=== PATIENT | female | born 1985 | race Caucasian/White ===

== ENCOUNTER → 2017-03-05 | Outpatient (CLI) | payer OTHER ==
[2017-03-05 10:24] LABS: BLOOD UREA NITROGEN 11 mg/dl (7-18); BUN/CREATININE RATIO 16.3 (10-20); CALCIUM 8.7 mg/dl (8.5-10.1); CARBON DIOXIDE 26 mmol/L (21-32); CHLORIDE 106 mmol/L (98-107); CREATININE 0.68 mg/dl (0.60-1.20); GLUCOSE 87 mg/dl (70-99); POTASSIUM 3.8 mmol/L (3.5-5.1); SODIUM 138 mmol/L (136-145)
[2017-03-05 10:27] LABS: CHOLESTEROL 153 mg/dl (0-200); CHOLESTEROL/HDL RATIO 3.3; HDL CHOLESTEROL 47 mg/dl; LDL CHOLESTEROL CALCULATED 87 mg/dl; TRIGLYCERIDES 94 mg/dl (0-150); VERY LOW DENSITY LIPOPROT CALC 19 mg/dl
== END | disposition home or self-care (01) ==
LOC: C.LAB1850 08:52
PROVIDERS: ATTEND Student in an Organized Health Care Education/Training Program
DX: Z83.49 Family history of other endocrine, nutritional and metabolic diseases (principal)

== ENCOUNTER → 2017-05-23 | Outpatient (CLI) | payer OTHER | END | disposition home or self-care (01) | LOC: C.PATHSPEC 13:19 | PROVIDERS: ATTEND Dermatology | DX: D22.5 Melanocytic nevi of trunk (principal) ==

== ENCOUNTER → 2017-07-16 | Outpatient (CLI) | payer OTHER | END | disposition home or self-care (01) | LOC: C.PATHSPEC 11:28 | PROVIDERS: ATTEND Plastic Surgery | DX: D22.9 Melanocytic nevi, unspecified (principal); L85.9 Epidermal thickening, unspecified; D22.39 Melanocytic nevi of other parts of face ==

== ENCOUNTER → 2017-08-07 | Outpatient (CLI) | payer OTHER | END | disposition home or self-care (01) | LOC: C.PAPS 12:00 | PROVIDERS: ATTEND Obstetrics & Gynecology | DX: Z12.4 Encounter for screening for malignant neoplasm of cervix (principal); Z11.51 Encounter for screening for human papillomavirus (HPV); Z79.890 Hormone replacement therapy; Z87.410 Personal history of cervical dysplasia ==

== ENCOUNTER → 2018-02-21 | Outpatient (CLI) | payer OTHER ==
[2018-02-21 12:30] LABS: BLOOD UREA NITROGEN 11 mg/dl (7-18); CALCIUM 8.5 mg/dl (8.5-10.1); CARBON DIOXIDE 26 mmol/L (21-32); CHOLESTEROL 153 mg/dl (0-200); CREATININE 0.64 mg/dl (0.60-1.20); GLUCOSE 83 mg/dl (70-99); LDL CHOLESTEROL CALCULATED 86 mg/dl; SODIUM 138 mmol/L (136-145)
== END | disposition home or self-care (01) ==
LOC: C.LAB1850 11:12
PROVIDERS: ATTEND Hospitalist
DX: Z00.00 Encounter for general adult medical examination without abnormal findings (principal); Z12.4 Encounter for screening for malignant neoplasm of cervix; Z00.8 Encounter for other general examination

== ENCOUNTER 2019-02-04 07:50 | Inpatient (IN) ==
[~2019-02-04 07:50] MED LIST: CEFAZOLIN 2000MG 2,000 MG/15 ML SYR IV SCH; CITRIC ACID/SODIUM CITRATE 15 ML UDC PO SCH
[2019-02-04] MEDS: LACTATED RINGER'S 1,000 ML IV PRN ×3 (09:05→15:07)
[2019-02-04] MEDS ORDERED: miSOPROStol 25 MCG TAB PV ONE (09:19)
[2019-02-04] MEDS ORDERED: OXYTOCIN 30 UNITS/500 ML BAG IV PRN (09:19)
[2019-02-04] MEDS ORDERED: miSOPROStol 25 MCG TAB ONE (09:20)
--- NOTE | 2019-02-04 09:28 | Obstetrical Progress Note ---
Date of Service Patient here for induction 40 weeks estimated weight 7-8 pounds. We attempted cervical Squires with sterile technique however the cervix is tightly closed and highly suspended multiple attempts were made and the patient eventually had a vagal response as a result I suggested an alternative of Cytotec she agrees the cervix is closed 50% firm posterior -2 palpate his vertex position heart rate is reactive at this time February 04, 2019 Results & Data Vital Signs (Past 12 Hours) Vital Signs Temp Pulse Resp BP 02/04/19 08:03 85 125/80 02/04/19 08:01 36.9 C 20
[2019-02-04 09:57] LABS: Hematocrit (blood only) 31.6 % (37-47); Hemoglobin 10.7 g/dL (12.0-16.0); Mean Platelet Volume 10.3 fL (7.4-10.4); Platelet Count 198 K/uL (130-400); RDW Coefficient of Variation 13.4 % (11.5-14.5); RDW Standard Deviation 43.3 fL (36.4-46.3); Red Blood Count 3.59 M/uL (4.2-5.4); White Blood Count 7.78 K/uL (4.8-10.8)
[2019-02-04 10:09] LABS: Mean Corpuscular Hgb Conc 33.9 g/dL (32-36)
--- NOTE | 2019-02-04 10:29 | History & Physical Report ---
Date of Service February 04, 2019 Assessment & Plan (1) Post term over 40 weeks: History of Present Illness Primary Care Provider: , 40 weeks 2 days confirmed via ultrasound on 06/23/18. Here for induction of vaginal delivery. no complications with this . Has been attending OB appointments regularly. Currently taking vitamins and omeprazole. Contractions: none. Fluid or Blood loss: none Movement: active Labs Blood type: A+ Antibody screen: negative H.7 Hct: 31.6% Wbc:7.78 Plt: 198 Rubella: immune VDRL/RPR: nonreactive Gonorrhea: negative Chlamydia: negative HIV: negative HBsAg: negative GBS: negative Glucose tolerance x2: negative x2 Allergies Allergy/AdvReac Type Severity Reaction Status Date / Time No Known Allergies Allergy Unverified 07/05/18 11:46 Home Medications Home Medications Medication Instructions Recorded Confirmed Type PNV cmb#95-ferrous fumarate-FA 1 tab PO DAILY 07/05/18 02/04/19 History [ Multivitamins] Patient History Medical History Term Surgical History H/O wisdom tooth extraction H/O LEEP Family History Other Cancer Diabetes Hypertension Kidney disease Lung disease Seizures Social History Preferred Language: Yemeni Communication Ability: Effective Beliefs That Will Affect Care: None marital status: Current Living Situation: Spouse current occupational status: employed Other Information That Helps Us Care for You: No Feels Safe at Home: Yes Safety Concerns: Feels Safe At This Time Smoking Status: Never smoker Hx Alcohol Use: No Hx Substance Use: No 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 No abnormal paps after LEEP. Review of Systems no fever and no chills no cough, no dyspnea and no wheezing + edema; no chest pain and no calf pain no nausea, no vomiting, no cramping, no constipation and no diarrhea/loose stools no dysuria and no difficulty urinating + back pain Physical Exam Constitutional: well developed and well nourished Respiratory: normal respiratory effort; no respiratory distress, no labored breathing and no cough Auscultation: no diminished lung sounds, no crackles, no rales, no rhonchi and no wheezes Cardiovascular: Rate/Rhythm: regular rate and regular rhythm Extremities: normal capillary refill and + pedal edema; no calf tenderness Gastrointestinal (Abdomen): Inspection/Auscultation: + abdomen distended and normal bowel sounds Percussion/Palpation: abdomen nontender and no guarding Genitourinary: Speculum/Bimanual Exam: + uterus enlarged OB Exam Abdomen: + fundal height Fundus: + firm and + relation to umbilicus (high above umbilicus); not tender Cervical Exam per OB: Dilation - 0 Effacement - 50% Station - -2 Results & Data Vital Signs (Past 12 Hours) Vital Signs Temp Pulse Resp BP 02/04/19 08:03 85 125/80 02/04/19 08:01 36.9 C 20 Monitoring External Monitor Heart Monitor: 6 minute deceleration during unsuccessful wasserman bulb placement. Mother felt lightheaded and dizzy, procedure was stopped and mother was rolled side to side and LR bolus was started. Lowest HR was 60, recovered back to 120's afterward. Current heart tracing: Moderate Variability Accelerations No Decels Tocodynamometer Contraction Frequency: not currently ellie. Given 25 mg of Cytotec to help soften and dilate cervix. Pitocin also running to augment contractions and dilation. Supervising Physician Co-Signing Physician Notes Resident Physician Supervision Note: I was present with [Name of resident] during the history and exam. I discussed the case with the resident and agree with the findings and plan as documented in the note. Any exceptions or clarifications are listed here: [None] Documented By: Tristan Saini MD, FACOG
[2019-02-04] MEDS ORDERED: ePHEDrine sulfate 50 MG/ML AMP ONE (13:27)
[2019-02-04] MEDS ORDERED: BUPIVACAINE 0.25% 30 ML VIAL ONE (13:27)
[2019-02-04] MEDS ORDERED: fentaNYL 2MCG/ML ROPIV 1.25MG/ML 100 ML BAG EPI ONE (13:28)
[2019-02-04] MEDS ORDERED: fentaNYL citrate 100 MCG/2 ML VIAL ONE (13:28)
--- NOTE | 2019-02-04 13:45 | Anesthesiology Consultation ---
Date of Service February 04, 2019 Assessment & Plan (1) Encounter for pre-operative examination: Chart Review Chart Review: Acceptable Risk for Labor Epidural History Height/Weight Height: 5 ft 6 in Weight: 84.368 kg Allergies Allergy/AdvReac Type Severity Reaction Status Date / Time No Known Allergies Allergy Unverified 07/05/18 11:46 Medications Home Medications Medication Instructions Recorded Confirmed Last Taken PNV cmb#95-ferrous fumarate-FA 1 tab PO DAILY 07/05/18 02/04/19 02/03/19 22:00 [ Multivitamins] Active Medications Generic Name Dose Route Start Last Admin Trade Name Freq PRN Reason Stop Dose Admin Lactated Ringer's 1,000 mls @ 125 mls/hr 02/04/19 09:19 02/04/19 10:35 Lr IV 02/06/19 09:18 0 mls/hr .Q8H PRN Infusion L&D Protocol Protocol Past Medical History Medical History Term Past Family History Family History Other Cancer Diabetes Hypertension Kidney disease Lung disease Seizures Past Surgical History Surgical History H/O wisdom tooth extraction H/O LEEP Social History Smoking Status: Never smoker Hx Alcohol Use: No Hx Substance Use: No Physical Exam Vital Signs Last Vital Signs Temp 36.8 C 02/04/19 12:31 Pulse 83 02/04/19 13:40 Resp 18 02/04/19 12:31 BP 123/70 02/04/19 13:36 Pulse Ox 96 02/04/19 13:40 Testing Laboratory Results 02/04/19 09:30
[2019-02-04] MEDS ORDERED: fentaNYL 2MCG/ML ROPIV 1.25MG/ML 100 ML BAG EPI PRN (14:23)
[2019-02-04] MEDS ORDERED: NALOXONE HCL 0.4 MG/1 ML VIAL/CARP IV PRN ×2 (14:23→16:33)
[2019-02-04] MEDS ORDERED: NALOXONE HCL 1 MG in SODIUM CHLORIDE 0.9% 1000ML 1,000 ML IV PRN ×2 (14:23→16:33)
[2019-02-04] MEDS ORDERED: ONDANSETRON INJ 2 MG/ML 2 ML VIAL IV PRN (14:23)
[2019-02-04] MEDS ORDERED: ePHEDrine sulfate 50 MG/ML AMP IV PRN ×2 (14:23→16:33)
--- NOTE | 2019-02-04 15:16 | Obstetrical Progress Note ---
Date of Service Patient responded to 125 mg patient responded to 1 dose of Cytotec with very strong contractions and requested epidural. At this stage she is now at 4 cm however heart rate tracing is been category 2 with repetitive decelerations some of these have been time delayed we have given oxygen tried multiple positions and fluid boluses it is 4 cm -2 station with meconium. Discussed with the patient we will keep trying alleviating maneuvers including position oxygen and hydration but if the baby does not respond we would be unfortunately first recommend section February 04, 2019 Results & Data Vital Signs (Past 12 Hours) Vital Signs Temp Pulse Resp BP Pulse Ox 02/04/19 15:10 82 100 02/04/19 15:06 84 135/76 02/04/19 15:05 84 100 02/04/19 15:00 86 100 02/04/19 14:59 104 H 89 L 02/04/19 14:57 84 129/68 02/04/19 14:55 87 100 02/04/19 14:52 84 136/61 02/04/19 14:50 90 100 02/04/19 14:46 83 126/67 02/04/19 14:45 84 100 02/04/19 14:42 92 H 156/72 H 02/04/19 14:40 79 100 02/04/19 14:36 81 99/54 L 02/04/19 14:35 90 100 02/04/19 14:34 81 114/67 02/04/19 14:32 75 117/59 L 02/04/19 14:30 92 H 112/63 100 02/04/19 14:28 87 110/58 L 02/04/19 14:26 87 114/62 02/04/19 14:25 91 H 100 02/04/19 14:24 87 121/73 02/04/19 14:22 82 120/68 02/04/19 14:20 88 129/69 98 02/04/19 14:18 86 118/74 02/04/19 14:16 77 131/79 02/04/19 14:15 76 100 02/04/19 14:12 81 93 02/04/19 14:10 80 99 02/04/19 14:05 91 H 99 02/04/19 14:00 81 97 02/04/19 13:55 89 95 02/04/19 13:50 86 100 02/04/19 13:45 83 100 02/04/19 13:40 83 96 02/04/19 13:36 78 123/70 02/04/19 13:35 81 99 02/04/19 12:31 36.8 C 80 18 142/86 H 02/04/19 10:45 74 129/88 02/04/19 08:03 85 125/80 02/04/19 08:01 36.9 C 20
--- NOTE | 2019-02-04 15:36 | Obstetrical Progress Note ---
Date of Service heart rate continues to be worrisome decelerations after contractions that are prolonged there is good variability but the patient is 4 cm and -2 station she is not immediately close to delivery repetitive D cells for over 45 minutes but have not responded to any resolution steps I have suggested and recommended the patient agrees see history and physical for more details February 04, 2019 Results & Data Vital Signs (Past 12 Hours) Vital Signs Temp Pulse Resp BP Pulse Ox 02/04/19 15:34 95 H 94 02/04/19 15:31 82 126/78 02/04/19 15:30 84 100 02/04/19 15:26 75 122/74 02/04/19 15:25 89 100 02/04/19 15:20 81 100 02/04/19 15:17 86 129/80 02/04/19 15:15 86 100 02/04/19 15:10 82 100 02/04/19 15:06 84 135/76 02/04/19 15:05 84 100 02/04/19 15:00 86 100 02/04/19 14:59 104 H 89 L 02/04/19 14:57 84 129/68 02/04/19 14:55 87 100 02/04/19 14:52 84 136/61 02/04/19 14:50 90 100 02/04/19 14:46 83 126/67 02/04/19 14:45 84 100 02/04/19 14:42 92 H 156/72 H 02/04/19 14:40 79 100 02/04/19 14:36 81 99/54 L 02/04/19 14:35 90 100 02/04/19 14:34 81 114/67 02/04/19 14:32 75 117/59 L 02/04/19 14:30 92 H 112/63 100 02/04/19 14:28 87 110/58 L 02/04/19 14:26 87 114/62 02/04/19 14:25 91 H 100 02/04/19 14:24 87 121/73 02/04/19 14:22 82 120/68 02/04/19 14:20 88 129/69 98 02/04/19 14:18 86 118/74 02/04/19 14:16 77 131/79 02/04/19 14:15 76 100 02/04/19 14:12 81 93 02/04/19 14:10 80 99 02/04/19 14:05 91 H 99 02/04/19 14:00 81 97 02/04/19 13:55 89 95 02/04/19 13:50 86 100 02/04/19 13:45 83 100 02/04/19 13:40 83 96 02/04/19 13:36 78 123/70 02/04/19 13:35 81 99 02/04/19 12:31 36.8 C 80 18 142/86 H 02/04/19 10:45 74 129/88 02/04/19 08:03 85 125/80 02/04/19 08:01 36.9 C 20
--- NOTE | 2019-02-04 15:39 | History & Physical Report ---
Date of Service February 04, 2019 Patient presented to labor and delivery for induction at 40 weeks gestation we attempted to place a cervical Squires however this was not possible as the patient had a prior procedure on her cervix and the cervix was stenotic 1 dose of Cytotec was given vaginally she became uncomfortable requested epidural and at that states she was then 3 cm she did progress to 4 cm however her heart rate was category 2 for over 45 minutes and was nonresponsive to corrective measures was recommended. Currently the heart rate is in the 140s to 150s however deep D cells are occurring to the 80s after contractions Assessment & Plan (1) intolerance to labor, delivered, current hospitalization: Have recommended section section. The patient was counseled to the nature of the procedure including alternatives such as continuing labor. Risks were discussed including bleeding infection injury to bowel bladder ureter vessels and even baby Deep vein thrombosis pulmonary embolus hernia and failure of the incision to heal were discussed Patient verbalized understanding of this and was given ample time to ask questions History of Present Illness Primary Care Provider: Nora Darling MD Allergies Allergy/AdvReac Type Severity Reaction Status Date / Time No Known Allergies Allergy Unverified 07/05/18 11:46 Home Medications Home Medications Medication Instructions Recorded Confirmed Type PNV cmb#95-ferrous fumarate-FA 1 tab PO DAILY 07/05/18 02/04/19 History [ Multivitamins] Patient History Medical History Term Surgical History H/O wisdom tooth extraction H/O LEEP Family History Other Cancer Diabetes Hypertension Kidney disease Lung disease Seizures Social History Preferred Language: Armenian Communication Ability: Effective Beliefs That Will Affect Care: None marital status: Current Living Situation: Spouse current occupational status: employed Other Information That Helps Us Care for You: No Feels Safe at Home: Yes Safety Concerns: Feels Safe At This Time Smoking Status: Never smoker Hx Alcohol Use: No Hx Substance Use: No Physical Exam Constitutional: WD/WN, vitals as above Respiratory: normal respiratory effort, lungs clear to auscultation Cardiovascular: RRR, no murmur, no edema Genitourinary: Manual OB Exam: + cervical dilation (4-5), + cervical effacement 100% and + station -2 OB Exam Monitor Tracing: + category II Results & Data Vital Signs (Past 12 Hours) Vital Signs Temp Pulse Resp BP Pulse Ox 02/04/19 15:35 87 100 02/04/19 15:34 95 H 94 02/04/19 15:31 82 126/78 02/04/19 15:30 84 100 02/04/19 15:26 75 122/74 02/04/19 15:25 89 100 02/04/19 15:20 81 100 02/04/19 15:17 86 129/80 02/04/19 15:15 86 100 02/04/19 15:10 82 100 02/04/19 15:06 84 135/76 02/04/19 15:05 84 100 02/04/19 15:00 86 100 02/04/19 14:59 104 H 89 L 02/04/19 14:57 84 129/68 02/04/19 14:55 87 100 02/04/19 14:52 84 136/61 02/04/19 14:50 90 100 02/04/19 14:46 83 126/67 02/04/19 14:45 84 100 02/04/19 14:42 92 H 156/72 H 02/04/19 14:40 79 100 02/04/19 14:36 81 99/54 L 02/04/19 14:35 90 100 02/04/19 14:34 81 114/67 02/04/19 14:32 75 117/59 L 02/04/19 14:30 92 H 112/63 100 02/04/19 14:28 87 110/58 L 02/04/19 14:26 87 114/62 02/04/19 14:25 91 H 100 02/04/19 14:24 87 121/73 02/04/19 14:22 82 120/68 02/04/19 14:20 88 129/69 98 02/04/19 14:18 86 118/74 02/04/19 14:16 77 131/79 02/04/19 14:15 76 100 02/04/19 14:12 81 93 02/04/19 14:10 80 99 02/04/19 14:05 91 H 99 02/04/19 14:00 81 97 02/04/19 13:55 89 95 02/04/19 13:50 86 100 02/04/19 13:45 83 100 02/04/19 13:40 83 96 02/04/19 13:36 78 123/70 02/04/19 13:35 81 99 02/04/19 12:31 36.8 C 80 18 142/86 H 02/04/19 10:45 74 129/88 02/04/19 08:03 85 125/80 02/04/19 08:01 36.9 C 20
[2019-02-04] MEDS ORDERED: MoRPHine SULFATE PF 1 MG/ML 10 ML AMP/VIAL ONE (15:41)
[2019-02-04] MEDS ORDERED: LACTATED RINGER'S 1,000 ML IV SCH ×2 (15:45→19:37)
[2019-02-04] MEDS ORDERED: LIDOCAINE HCL 2% MPF (LOCAL) 5 ML VIAL INFIL ONE (16:22)
[2019-02-04] MEDS ORDERED: SUCCINYLCHOLINE CHLORIDE 20 MG/ML 10 ML VIAL ONE (16:22)
[2019-02-04] MEDS ORDERED: METOCLOPRAMIDE HCL INJ 5 MG/ML 2 ML VIAL ONE (16:22)
[2019-02-04] MEDS ORDERED: ONDANSETRON INJ 2 MG/ML 2 ML VIAL ONE (16:22)
[2019-02-04] MEDS ORDERED: OXYTOCIN 10 UNITS/ML VIAL ONE (16:22)
[2019-02-04] MEDS ORDERED: PROPOFOL IV EMULSION 10 MG/ML 20 ML VIAL IV ONE (16:22)
[2019-02-04] MEDS ORDERED: NALOXONE HCL 0.08 MG in SYRINGE 1.8 ML IV PRN (16:33)
[2019-02-04] MEDS ORDERED: MEPERIDINE HCL 25 MG/ML CARP IV PRN (16:33)
[2019-02-04] MEDS ORDERED: NALBUPHINE HCL INJ 10 MG/ML AMP IV PRN (16:33)
[2019-02-04] MEDS ORDERED: MoRPHine SULFATE PF 1 MG/ML 10 ML AMP/VIAL INT SPINAL ONE (16:33)
[2019-02-04] MEDS ORDERED: DiphenhydrAMINE HCL 50 MG/ML VIAL IV PRN (16:33)
[2019-02-04] MEDS ORDERED: PROMETHAZINE HCL 12.5 MG in SODIUM CHLORIDE 0.9% 50 ML IV PRN (16:33)
[2019-02-04] MEDS ORDERED: LACTATED RINGER'S 500 ML IV PRN (16:33)
[2019-02-04] MEDS ORDERED: SODIUM CHLORIDE 0.9% 1000ML 1,000 ML IV SCH (16:45)
[2019-02-04] MEDS ORDERED: NO NARCOTICS OR SEDATIVES SCH (16:45)
--- NOTE | 2019-02-04 16:50 | Anesthesia Procedure Note ---
Date of Service February 04, 2019 Anesthesia Post Epidural Note Vital Signs Vital Signs: Temp Pulse Resp BP Pulse Ox 36.8 C 97 H 18 124/76 100 02/04/19 12:31 02/04/19 15:54 02/04/19 12:31 02/04/19 15:54 02/04/19 15:50 Notes Mental Status: alert / awake / arousable and participated in evaluation Nausea / Vomiting: adequately controlled Pain: adequately controlled Airway Patency, RR, SpO2: stable & adequate BP & HR: stable & adequate Hydration State: stable & adequate Anesthetic Complications: no major complications apparent Epidural: Removed without complications and With tip intact
--- NOTE | 2019-02-04 16:53 | Operative Report ---
Post Operative Report Pre & Post Diagnosis Operation Date: 02/04/19 15:45 Pre-Op Diagnosis: Intolerance to Labor Post-Op Diagnosis: Same; Delivery of a live male child at 1615 Procedure Operation Date: 02/04/19 15:45 Actual Procedures p Section in LD(Bilateral) - Tristan Saini MD, FACOG Surgeon Tristan Saini MD, FACOG Social Scientist KAZ Evans Estimated Blood Loss 600 Findings Consistent with Post-Op Diagnosis Specimens none Description of Procedure Patient had anesthesia with her epidural Squires catheter placed by nursing she was placed in supine position with a leftward tilt prepped and draped Ancef given preoperatively skin incision tested with pickups with teeth and found to be adequate scalpel used to make a Pfannenstiel incision dissecting down through subtenons fat to the fascia in the midline fascia cut laterally with the curved Rodarte scissors fascia then released superiorly and inferiorly from the rectus muscles with curved Mayos rectus muscle split peritoneal cavity entered in a superior location opening enlarged to allow exposure bladder retractor placed was able to visualize the bladder flap this was dissected away with the Metshaunabaums bladder retractor readjusted scalpel was used to make a low transverse incision entry was done bluntly with the slitter cut off operator's finger fluid revealed meconium there was no nuchal cord baby was delivered by flexion of the head and then pressure from the educational assistant teacher baby was delivered without difficulty mouth and then nares suctioned at delivery of the head and then with more pressure baby was then delivered fully live vigorous male cord clamped. Baby handed to pediatrics. IV Pitocin started placenta manually removed we ensured all placenta was removed with a moist lap uterus was exteriorized uterus then closed in 2 layers first layer running 0 Monocryl locked second layer 0 Monocryl nonlocked after irrigation and suction of the cul-de-sac the uterus placed back in the peritoneal cavity and visualized hemostasis was excellent we irrigated and suctioned the bladder flap region. We then inspected in the subfascial layer and this was hemostatic Vicryl 0, was used to close the fascia subtenons fat was irrigated and closed with 3-0 Vicryl 4-0 subcuticular Monocryl closure and Steri-Strips applied urine was clear at the end of the procedure I attest to the content of the Intraoperative Record and any orders documented therein. Any exceptions are noted below.
[2019-02-04] MEDS: KETOROLAC 30 MG/ML VIAL IV PRN (17:10)
[2019-02-04] MEDS ORDERED: BENZOCAINE 20% AER SPR 82.5 GM CAN EXT PRN (19:37)
[2019-02-04] MEDS ORDERED: DIPHTHERIA/TETANUS/PERTUSSIS 0.5 ML SYR/VIAL IM ONE (19:37)
[2019-02-04] MEDS ORDERED: SUPERCREAM 0.870% 15 GM JAR EXT PRN (19:37)
[2019-02-04] MEDS ORDERED: MAGNESIUM HYDROXIDE SUSP 30 ML UDC PO PRN (19:37)
[2019-02-04] MEDS ORDERED: HYDROCORTISONE ACETATE 25 MG SUPP PR PRN (19:37)
[2019-02-04] MEDS ORDERED: SENNA 8.6 MG TAB PO PRN (19:37)
[2019-02-04] MEDS: OXYTOCIN 20 UNITS in LACTATED RINGER'S 1,000 ML IV SCH (23:17)
[2019-02-05] MEDS: KETOROLAC 30 MG/ML VIAL IV PRN ×2 (03:20→09:28)
--- NOTE | 2019-02-05 06:21 | Obstetrical Progress Note ---
Date of Service February 05, 2019 Postoperative day #1 the patient is doing well Squires catheter is still in place and she is not ambulating at her pain is well controlled she has minimal bleeding she has no calf tenderness Assessment & Plan (1) intolerance to labor, delivered, current hospitalization: Postoperative day #1 patient is doing well continue current care Physical Exam Constitutional WD/WN, vitals as above Respiratory normal respiratory effort, lungs clear to auscultation Genitourinary Uterus firm nontender incision clean dry and intact extremity exam negative Results & Data Vital Signs (Past 12 Hours) Vital Signs Temp Pulse Pulse Resp BP BP Pulse Ox 02/05/19 05:15 16 98 02/05/19 04:15 16 98 02/05/19 03:15 18 98 02/05/19 03:05 36.9 C 88 18 113/76 98 02/05/19 02:15 16 97 02/05/19 01:15 16 97 02/05/19 00:15 16 96 02/04/19 23:24 37.3 C 93 H 18 124/78 99 02/04/19 23:15 18 99 02/04/19 22:15 16 98 02/04/19 21:15 16 97 02/04/19 20:15 18 97 02/04/19 19:15 36.7 C 78 18 116/72 98 02/04/19 19:00 81 98 02/04/19 18:55 36.8 C 80 18 114/72 99 02/04/19 18:50 80 99 02/04/19 18:45 82 99 02/04/19 18:40 83 98 02/04/19 18:35 80 99 02/04/19 18:30 87 98 02/04/19 18:26 36.9 C 85 18 111/66 98 02/04/19 18:25 80 99 02/04/19 18:20 75 111/66 98
[2019-02-05] MEDS ORDERED: BACITRACIN OINT 0.9 GM PKT EXT PRN (07:09)
[2019-02-05 07:20] LABS: Basophils # (auto) 0.01 K/uL (0-0.2); Basophils % (auto) 0.1 %; Eosinophils # (auto) 0.04 K/uL (0-0.5); Eosinophils % (auto) 0.4 %; Hematocrit (blood only) 27.1 % (37-47); Hemoglobin 9.1 g/dL (12.0-16.0); Immature Granulocytes # (auto) 0.05 K/uL (0.00-0.02); Immature Granulocytes % (auto) 0.5 %; Lymphocytes # (auto) 1.39 K/uL (1.2-3.4); Lymphocytes % (auto) 14.1 %; Mean Corpuscular Hgb Conc 33.6 g/dL (32-36); Mean Platelet Volume 9.9 fL (7.4-10.4); Monocytes # (auto) 0.83 K/uL (0.11-0.59); Monocytes % (auto) 8.4 %; Neutrophils # (auto) 7.57 K/uL (1.4-6.5); Neutrophils % (auto) 76.5 %; Platelet Count 159 K/uL (130-400); RDW Coefficient of Variation 13.5 % (11.5-14.5); RDW Standard Deviation 43.5 fL (36.4-46.3); Red Blood Count 3.08 M/uL (4.2-5.4); White Blood Count 9.89 K/uL (4.8-10.8)
[2019-02-05] MEDS: OXYTOCIN 20 UNITS in LACTATED RINGER'S 1,000 ML IV SCH (07:44)
--- NOTE | 2019-02-05 07:47 | Anesthesiology Progress Note ---
Date of Service February 05, 2019 Anesthesia Post Procedure Vital Signs Vital Signs: Temp Pulse Pulse Resp BP BP Pulse Ox 02/05/19 06:15 18 99 02/05/19 05:15 16 98 02/05/19 04:15 16 98 02/05/19 03:15 18 98 02/05/19 03:05 36.9 C 88 18 113/76 98 02/05/19 02:15 16 97 02/05/19 01:15 16 97 02/05/19 00:15 16 96 02/04/19 23:24 37.3 C 93 H 18 124/78 99 02/04/19 23:15 18 99 02/04/19 22:15 16 98 02/04/19 21:15 16 97 02/04/19 20:15 18 97 02/04/19 19:15 36.7 C 78 18 116/72 98 02/04/19 19:00 81 98 02/04/19 18:55 36.8 C 80 18 114/72 99 02/04/19 18:50 80 99 02/04/19 18:45 82 99 02/04/19 18:40 83 98 02/04/19 18:35 80 99 02/04/19 18:30 87 98 02/04/19 18:26 36.9 C 85 18 111/66 98 02/04/19 18:25 80 99 02/04/19 18:20 75 111/66 98 02/04/19 18:15 76 98 02/04/19 18:10 79 114/63 99 02/04/19 18:05 80 99 02/04/19 18:00 81 108/54 L 99 02/04/19 17:55 80 98 02/04/19 17:50 81 18 119/57 L 98 02/04/19 17:46 18 02/04/19 17:45 82 99 02/04/19 17:40 90 127/55 L 98 02/04/19 17:35 87 98 02/04/19 17:30 86 18 98 02/04/19 17:25 79 97 02/04/19 17:20 84 18 106/55 L 98 02/04/19 17:15 86 98 02/04/19 17:10 91 H 18 102/55 L 98 02/04/19 17:05 90 98 02/04/19 17:03 91 H 94 02/04/19 17:01 87 109/59 L 02/04/19 17:00 91 H 100 02/04/19 16:55 93 H 99 02/04/19 16:50 36.9 C 96 H 18 126/56 L 99 02/04/19 15:54 97 H 124/76 02/04/19 15:52 85 131/79 02/04/19 15:51 105 H 133/79 02/04/19 15:50 78 100 02/04/19 15:48 77 128/72 02/04/19 15:45 80 100 02/04/19 15:40 83 100 02/04/19 15:35 87 100 02/04/19 15:34 95 H 94 02/04/19 15:31 82 126/78 02/04/19 15:30 84 100 02/04/19 15:26 75 122/74 02/04/19 15:25 89 100 02/04/19 15:20 81 100 02/04/19 15:17 86 129/80 02/04/19 15:15 86 100 02/04/19 15:10 82 100 02/04/19 15:06 84 135/76 02/04/19 15:05 84 100 02/04/19 15:00 86 100 02/04/19 14:59 104 H 89 L 02/04/19 14:57 84 129/68 02/04/19 14:55 87 100 02/04/19 14:52 84 136/61 02/04/19 14:50 90 100 02/04/19 14:46 83 126/67 02/04/19 14:45 84 100 02/04/19 14:42 92 H 156/72 H 02/04/19 14:40 79 100 02/04/19 14:36 81 99/54 L 02/04/19 14:35 90 100 02/04/19 14:34 81 114/67 02/04/19 14:32 75 117/59 L 02/04/19 14:30 92 H 112/63 100 02/04/19 14:28 87 110/58 L 02/04/19 14:26 87 114/62 02/04/19 14:25 91 H 100 02/04/19 14:24 87 121/73 02/04/19 14:22 82 120/68 02/04/19 14:20 88 129/69 98 02/04/19 14:18 86 118/74 02/04/19 14:16 77 131/79 02/04/19 14:15 76 100 02/04/19 14:12 81 93 02/04/19 14:10 80 99 02/04/19 14:05 91 H 99 02/04/19 14:00 81 97 02/04/19 13:55 89 95 02/04/19 13:50 86 100 02/04/19 13:45 83 100 02/04/19 13:40 83 96 02/04/19 13:36 78 123/70 02/04/19 13:35 81 99 02/04/19 12:31 36.8 C 80 18 142/86 H 02/04/19 10:45 74 129/88 02/04/19 08:03 85 125/80 02/04/19 08:01 36.9 C 20 Pain Intensity Bilateral Abdomen: Pain Intensity: 3 Transfer of Care Handoff Completed per policy Notes Mental Status: alert / awake / arousable Patient Amnestic to Procedure: Yes Nausea / Vomiting: adequately controlled Pain: adequately controlled Airway Patency, RR, SpO2: stable & adequate BP & HR: stable & adequate Hydration State: stable & adequate Neuraxial Anesthesia: was administered and sensory block resolved Anesthetic Complications: no major complications apparent and Pt Satisfied with anesthetic care
[2019-02-05] MEDS: DOCUSATE SODIUM 100 MG CAP PO SCH ×2 (08:39→20:45)
[2019-02-05] MEDS: SIMETHICONE 80 MG CHEW PO SCH ×4 (08:40→20:45)
[2019-02-05] MEDS: PRENATAL VITAMIN 1 TAB PO SCH (08:40)
[2019-02-05] MEDS: FERROUS SULFATE 325 MG TAB PO SCH (08:40)
[2019-02-05] MEDS ORDERED: PNV CMB FERROUS FUMARATE FA PO SCH (09:00)
[2019-02-05] MEDS ORDERED: BACITRACIN OINT 15 GM TUBE EXT PRN (09:46)
[2019-02-05] MEDS ORDERED: DC INTRASPINAL MORPHINE SCH (10:33)
[2019-02-05] MEDS ORDERED: ZOLPIDEM TARTRATE 5 MG TAB PO PRN (10:35)
[2019-02-05] MEDS ORDERED: KETOROLAC 30 MG/ML VIAL IV PRN (10:35)
[2019-02-05] MEDS ORDERED: DiphenhydrAMINE HCL 50 MG/ML VIAL IV PRN (10:35)
[2019-02-05] MEDS ORDERED: PROMETHAZINE HCL 25 MG in SODIUM CHLORIDE 0.9% 50 ML IV PRN (10:35)
[2019-02-05] MEDS ORDERED: MEPERIDINE HCL 50 MG/ML CARP IV PRN (10:35)
[2019-02-05] MEDS ORDERED: ONDANSETRON INJ 2 MG/ML 2 ML VIAL IV PRN (10:35)
[2019-02-05] MEDS: OXYCODONE/ACETAMINOPHEN 5mg/325mg TAB PO PRN ×3 (11:37→20:45)
[2019-02-05] MEDS: IBUPROFEN 600 MG TAB PO PRN ×2 (15:29→20:45)
[2019-02-05] MEDS ORDERED: BISACODYL 5 MG TABEC PO SCH (20:00)
[2019-02-06] MEDS: IBUPROFEN 600 MG TAB PO PRN ×3 (01:38→11:34)
[2019-02-06] MEDS: OXYCODONE/ACETAMINOPHEN 5mg/325mg TAB PO PRN ×3 (01:39→11:34)
--- NOTE | 2019-02-06 07:08 | Obstetrical Progress Note ---
Date of Service <Patti Eric MD - Last Filed: 02/06/19 07:15> February 06, 2019 Assessment & Plan <Patti Eric MD - Last Filed: 02/06/19 07:15> (1) Post term over 40 weeks: (2) intolerance to labor, delivered, current hospitalization: Subjective <Patti Eric MD - Last Filed: 02/06/19 07:15> Ambulation: ambulating normally Voiding: no voiding problems Diet Tolerance:: regular diet Lochia:: Small Current Pain Level(1-10): 4 Constitutional: no fever and no chills Respiratory: no cough and no dyspnea Cardiovascular: + edema; no chest pain and no calf pain Breast: no breast pain Gastrointestinal: no abdominal pain, no nausea, no vomiting, no cramping, no constipation and no diarrhea/loose stools Genitourinary (female): no dysuria Physical Exam <Patti Eric MD - Last Filed: 02/06/19 07:15> Constitutional well developed and well nourished Respiratory normal respiratory effort; no respiratory distress, no labored breathing and no cough Auscultation: no diminished lung sounds, no crackles, no rales, no rhonchi and no wheezes Cardiovascular Rate/Rhythm: regular rate and regular rhythm Extremities: normal capillary refill and + pedal edema; no calf tenderness Gastrointestinal (Abdomen) Inspection/Auscultation: + abdomen distended and normal bowel sounds Percussion/Palpation: abdomen nontender and no guarding Results & Data <Patti Eric MD - Last Filed: 02/06/19 07:15> Vital Signs (Past 12 Hours) Vital Signs Temp Pulse Resp BP 02/05/19 23:30 36.7 C 91 H 18 102/64 <Bing Hutson DO - Last Filed: 02/06/19 07:55> Co-Signing Physician Notes Resident Physician Supervision Note: I interviewed and examined the patient. Discussed with Dr. Eric and agree with findings and plan as documented in the note. Any exceptions or clarifications are listed here: POD#2 doing well. No concerns. Rx Percocet #20 tabs. [place] checked. RTO 6w PP. Reviewed instructions. Documented By: Bing Hutson DO
[2019-02-06 07:16] LABS: Hematocrit (blood only) 26.3 % (37-47); Hemoglobin 8.8 g/dL (12.0-16.0)
[2019-02-06] MEDS: PRENATAL VITAMIN 1 TAB PO SCH (07:50)
[2019-02-06] MEDS: DOCUSATE SODIUM 100 MG CAP PO SCH (07:50)
[2019-02-06] MEDS: SIMETHICONE 80 MG CHEW PO SCH (07:51)
[2019-02-06] MEDS: FERROUS SULFATE 325 MG TAB PO SCH (07:51)
[2019-02-06] MEDS ORDERED: BISACODYL 10 MG SUPP PR PRN (16:46)
--- NOTE | 2019-02-09 09:35 | Discharge Summary ---
Date of Service February 09, 2019 Admission Exam (Per Admitting) Constitutional WD/WN, vitals as above Respiratory normal respiratory effort, lungs clear to auscultation Cardiovascular RRR, no murmur, no edema Gastrointestinal (Abdomen) normal bowel sounds, soft, nontender, no hepatosplenomegaly Inspection/Auscultation: + abdominal surgical incision Discharge Data Consultations 02/04/19 09:19 Consult Anesthesiology Stat Procedures Performed Operation Date: 02/04/19 15:45 Actual Procedures p Section in LD(Bilateral) - Tristan Saini MD, FACOG Hospital Course (1) intolerance to labor, delivered, current hospitalization: Postoperative day #2 patient is doing well continue current care. Ambulating, tolerating oral diet. Home
== END 2019-02-06 13:55 | disposition home or self-care (01) | DRG 788 ==
LOC: 4S1 07:50 → 4S2 20:37

== ENCOUNTER 2019-03-14 03:29 | Inpatient (IN) ==
[2019-03-14 04:49] LABS: Basophils # (auto) 0.03 K/uL (0-0.2); Basophils % (auto) 0.3 %; Hematocrit (blood only) 36.8 % (37-47); Hemoglobin 12.2 g/dL (12.0-16.0); Immature Granulocytes # (auto) 0.03 K/uL (0.00-0.02); Immature Granulocytes % (auto) 0.3 %; Lymphocytes # (auto) 1.33 K/uL (1.2-3.4); Lymphocytes % (auto) 13.9 %; Mean Corpuscular Hgb Conc 33.2 g/dL (32-36); Mean Corpuscular Volume 89.8 fL (80-100); Mean Platelet Volume 9.3 fL (7.4-10.4); Monocytes % (auto) 8.3 %; Neutrophils % (auto) 76.2 %; Platelet Count 278 K/uL (130-400); RDW Coefficient of Variation 12.9 % (11.5-14.5); White Blood Count 9.59 K/uL (4.8-10.8)
[2019-03-14 04:57] LABS: Appearance Urine Cloudy (Clear); Bacteria Urine Automated Negative (Negative); Bilirubin Urine Negative (Negative); Blood Urine 1+ (Negative); Color Urine Yellow; Glucose Urine UA Negative (Negative); Ketones Urine Negative (Negative); Leukocyte Esterase Urine Negative (Negative); Nitrite Urine Negative (Negative); Protein Urine Negative (Negative); RBC Urine Automated 0-4 /hpf (0-4); Specific Gravity Urine 1.025 (1.000-1.030); Urobilinogen Urine Negative (Negative)
[2019-03-14 05:07] LABS: Albumin Level 3.8 gm/dl (3.4-5.0); BUN Creatinine Ratio 19.1 (10-20); Calcium 8.8 mg/dl (8.5-10.1); Creatinine Clr Calc Pharmacy 112.3 ml/min; Est GFR (African American) 121.1; Est GFR (Non-African American) 104.5; Potassium 3.7 mmol/L (3.5-5.1)
[2019-03-14 05:10] LABS: Albumin Globulin Ratio 0.9 (0.9-2); Bilirubin,Total 0.6 mg/dl (0.2-1); Globulin 4.1 gm/dl (2.5-4.0); Total Protein 7.9 gm/dl (6.4-8.2)
--- NOTE | 2019-03-14 05:44 | Emergency Department Note ---
History of Present Illness General Chief complaint: Back Injury/Pain Stated complaint: BACK PAIN Source: patient Mode of arrival: ambulatory Limitations: no limitations History of Present Illness Maximum Pain Intensity: 10 This patient is a 33-year-old female who presents to the emergency department complaining of intermittent back/abdominal pain. Patient states that she is 5 weeks . She reports that her symptoms started when she was 34 weeks . She states that she began having intermittent episodes of pain in her mid back with radiation into the center of her upper abdomen. She states the episodes would typically last for 2 to 4 hours at a time and were initially infrequent. She states that over the past few weeks, the frequency has been increasing. She states that she is now having symptoms 1-2 times daily. Again, the symptoms last for 2 to 4 hours at a time and seemed to go away at random. She has been seeing a chiropractor who feel this is related to her posture during breast-feeding. She has been performing stretches to try to alleviate the symptoms. She states this episode of pain started 4 hours ago. She does report nausea and had an episode of vomiting tonight due to her pain. She states that her pain is a 10/10 at its worst and is a 6/10 now. She took a dose of Motrin tonight without relief. She states this episode of pain started 4 hours ago. She denies any history of abdominal issues. She denies any history of back problems. She denies any urinary symptoms, chest pain or shortness of breath. Home Medications Home Medications Medication Instructions Recorded Confirmed Type PNV cmb#95-ferrous fumarate-FA 1 tab PO DAILY 07/05/18 03/14/19 History [ Multivitamins] cetirizine 10 mg tablet 10 mg PO DAILY PRN tab 03/06/19 03/14/19 History mometasone 50 mcg/actuation nasal 1 spray INTRANASAL DAILY PRN #1 gm 03/06/19 03/14/19 History spray norethindrone (contraceptive) 0.35 0.35 mg PO DAILY #28 tab 03/13/19 03/14/19 Rx mg tablet Allergies Allergy/AdvReac Type Severity Reaction Status Date / Time No Known Allergies Allergy Verified 03/14/19 04:08 Past Med/Surg History Medical History Term Surgical History H/O LEEP H/O wisdom tooth extraction Family History Father Crohn's disease Hypertension Hypercholesteremia Deep vein thrombosis Prostate cancer Unknown Allergic rhinitis Grandmother Bone cancer Diabetes Grandfather Stomach cancer Other Cancer Kidney disease Lung disease Seizures Social History Preferred Language: Libyan Communication Ability: Effective Credit Report Checker Required: No Beliefs That Will Affect Care: None marital status: Current Living Situation: Spouse and Family current occupational status: employed Other Information That Helps Us Care for You: No Feels Safe at Home: Yes Safety Concerns: Feels Safe At This Time Smoking Status: Never smoker Hx Alcohol Use: No Hx Substance Use: No Review of Systems A total of 10 systems reviewed and were otherwise negative Physical Exam Vital Signs Vital Signs - 24 hr 03/14/19 03:33 03/14/19 04:50 Temperature 36.6 C Temperature Source Oral Sepsis Recent Fever Within 48 Hours No Sepsis Action Taken by Nursing No Action Required Pulse Rate 79 Pulse Rate [Right Finger] 76 Pulse Rhythm Regular Pulse Strength Normal Respiratory Rate 20 16 Respiratory Effort / Characteristics Non-Labored Spontaneous Respiratory Depth Normal Respiratory Pattern Regular Blood Pressure 137/87 Blood Pressure [Right Arm] 112/74 Blood Pressure Mean 103 Blood Pressure Mean [Right Arm] 86 Blood Pressure Position Sitting Blood Pressure Position [Right Arm] Sitting Pulse Oximetry 100 98 Oxygen Delivery Method Room Air Room Air VITALS: Vitals are noted on the nurse's note and reviewed by myself. Vital signs stable. GENERAL: This is a 33-year-old female, in no acute distress, nondiaphoretic, well-developed well-nourished. SKIN: The skin was without rashes. EARS: External auditory canals clear, tympanic membranes pearly vale without erythema or effusion bilaterally. EYES: Pupils equal round and reactive to light and accommodation. No scleral icterus. MOUTH: Mucous membranes moist. Tonsils are not enlarged. Pharynx without erythema or exudate. NECK: Supple without nuchal rigidity. No lymphadenopathy. HEART: Regular rate and rhythm without murmurs gallops or rubs. LUNGS: Clear to auscultation bilaterally without wheezes, rales or rhonchi. ABDOMEN: Positive bowel sounds x 4. Soft, mild epigastric tenderness to palpation. No guarding or rebound tenderness. NEURO: Patient was alert and oriented to person place and time. Course Consultations Consultation #1: Dr. Murray [facility] hospitalist Administered Medications Discontinued Medications Sodium Chloride (Nss 1000ml) 1,000 mls @ 200 mls/hr IV .Q5H RADHA Stop: 04/13/19 08:14 Last Admin: 03/14/19 08:25 Dose: 200 mls/hr Documented by: [id number] Medical Decision Making Differential Diagnosis Differential diagnosis includes musculoskeletal pain, biliary colic, pancreatitis, aortic dissection, peptic ulcer disease, gastritis, among others. Home Medications Current Medication List: was personally reviewed by me Laboratory Data Attestation: I reviewed the patient's lab results. Result diagrams: 03/14/19 04:38 03/14/19 04:38 Lab Results 03/14/19 03/14/19 03/14/19 Range/Units 04:38 04:38 04:40 WBC 9.59 (4.8-10.8) K/uL RBC 4.10 L (4.2-5.4) M/uL Hgb 12.2 (12.0-16.0) g/dL Hct 36.8 L (37-47) % MCV 89.8 (80-100) fL MCH 29.8 (25-34) pg MCHC 33.2 (32-36) g/dL RDW Std Deviation 42.0 (36.4-46.3) fL RDW Coeff of Diana 12.9 (11.5-14.5) % Plt Count 278 (130-400) K/uL MPV 9.3 (7.4-10.4) fL Immature Gran % (Auto) 0.3 % Neut % (Auto) 76.2 % Lymph % (Auto) 13.9 % [place] % (Auto) 8.3 % Eos % (Auto) 1.0 % Baso % (Auto) 0.3 % Immature Gran # (Auto) 0.03 H (0.00-0.02) K/uL Neut # (Auto) 7.30 H (1.4-6.5) K/uL Lymph # (Auto) 1.33 (1.2-3.4) K/uL [place] # (Auto) 0.80 H (0.11-0.59) K/uL Eos # (Auto) 0.10 (0-0.5) K/uL Baso # (Auto) 0.03 (0-0.2) K/uL Sodium 141 (136-145) mmol/L Potassium 3.7 (3.5-5.1) mmol/L Chloride 108 H (98-107) mmol/L Carbon Dioxide 26 (21-32) mmol/L Anion Gap 7.0 (3-11) BUN 15 (7-18) mg/dl Creatinine 0.76 (0.6-1.2) mg/dl Est Cr Clr Drug Dosing 112.3 ml/min Est GFR ( Amer) 121.1 Est GFR (Non-Af Amer) 104.5 BUN/Creatinine Ratio 19.1 (10-20) Glucose 91 (70-99) mg/dl Calcium 8.8 (8.5-10.1) mg/dl Total Bilirubin 0.6 (0.2-1) mg/dl AST 125 H (15-37) U/L ALT 116 H (12-78) U/L Alkaline Phosphatase 112 (45-117) U/L Total Protein 7.9 (6.4-8.2) gm/dl Albumin 3.8 (3.4-5.0) gm/dl Globulin 4.1 H (2.5-4.0) gm/dl Albumin/Globulin Ratio 0.9 (0.9-2) Lipase 5602 H (73-393) U/L Urine Color Yellow Urine Appearance Cloudy A (Clear) Urine pH 7.0 (4.5-7.5) Ur Specific [place] 1.025 (1.000-1.030) Urine Protein Negative (Negative) Urine Glucose (UA) Negative (Negative) Urine Ketones Negative (Negative) Urine Blood 1+ H (Negative) Urine Nitrite Negative (Negative) Urine Bilirubin Negative (Negative) Urine Urobilinogen Negative (Negative) Ur Leukocyte Esterase Negative (Negative) Urine WBC (Auto) 1-5 (0-5) /hpf Urine RBC (Auto) 0-4 (0-4) /hpf U Hyaline Cast (Auto) 1-5 (0-5) /lpf U Epithel Cells (Auto) 10-20 H (0-5) /lpf Urine Bacteria (Auto) Negative (Negative) Imaging Data Attestation: I personally reviewed and interpreted this imaging study as follows: Radiologist's Impression: BILIARY ULTRASOUND CLINICAL HISTORY: intermittent epigastric pain COMPARISON STUDY: No previous studies for comparison. FINDINGS: The pancreas appears sonographically normal. No hepatic masses are visualized. There is no ductal dilatation. The common bile duct measured 5 mm. There is no right-sided hydronephrosis. Multiple gallstones are visualized. The re was mild gallbladder wall thickening. There is a probable tiny incidental 2 mm gallbladder polyp. The technologist reports a negative sonographic Lino sign. If there is clinical concern is the presence of acute cholecystitis, a nuclear medicine hepatobiliary study could be obtained in follow-up to assess cystic duct patency. IMPRESSION: 1. Cholelithiasis and mild gallbladder wall thickening 2. No ductal dilatation 3. The technologist reports a negative sonographic Lino sign. XR chest 1V portable CLINICAL HISTORY: Atypical chest pain radiating to the back. COMPARISON STUDY: No previous studies for comparison. FINDINGS: The cardiac and mediastinal contours are normal. There is no evidence of focal pulmonary consolidation. There is no evidence of failure. No pleural effusions are visualized.[ IMPRESSION: No active disease in the chest. Blood Pressure Blood Pressure Findings: Elevated blood pressure Blood Pressure Disposition: further management by hospitalist [facility] Narrative The patient is a 33-year-old female who presents today complaining of intermittent episodes of back spasms with radiation into the abdomen. At the t mario of my evaluation, patient's pain began to improve and resolved. Labs revealed no leukocytosis or concerning anemia. Lipase was found to be elevated at 5602. Patient was also found to have elevation of her LFTs, with AST of 125 and ALT of 116. Bilirubin was within normal limits. Gallbladder ultrasound shows multiple gallstones and mild wall thickening. This may be indicative of gallstone pancreatitis. Case was discussed with the [facility] hospitalist, who will evaluate the patient for further evaluation and care. Impression & Plan Acute gallstone pancreatitis Discharge Plan Visit Data *Final* Discharge Date/Time: 03/14/19 07:28 Chief Complaint: Back Injury/Pain Stated Complaint: BACK PAIN ED Provider: Panchito Taylor ED Midlevel Provider: Minerva Eduardo Discharge Problem: Acute gallstone pancreatitis Patient Disposition: Admitted As Inpatient Discharge Instructions Interventions: ED Discharge Assessment Last Done: 03/14/19 07:28
--- NOTE | 2019-03-14 06:24 | XRay Report ---
XR chest 1V portable CLINICAL HISTORY: Atypical chest pain radiating to the back. COMPARISON STUDY: No previous studies for comparison. FINDINGS: The cardiac and mediastinal contours are normal. There is no evidence of focal pulmonary co nsolidation. There is no evidence of failure. No pleural effusions are visualized.[ IMPRESSION: No active disease in the chest. Electronically signed by: Geovanny Hedrick M.D. 03/14/2019 6:23 AM
--- NOTE | 2019-03-14 06:31 | Ultrasound Report ---
BILIARY ULTRASOUND CLINICAL HISTORY: intermittent epigastric pain COMPARISON STUDY: No previous studies for comparison. FINDINGS: The pancreas appears sonographically normal. No hepatic masses are visualized. There is no ductal dilatation. The common bile duct measured 5 mm. There is no right-sided hydronephrosis. Multip le gallstones are visualized. There was mild gallbladder wall thickening. There is a probable tiny in cidental 2 mm gallbladder polyp. The technologist reports a negative sonographic Lino sign. If ther e is clinical concern is the presence of acute cholecystitis, a nuclear medicine hepatobiliary study could be obtained in follow-up to assess cystic duct patency. IMPRESSION: 1. Cholelithiasis and mild gallbladder wall thickening 2. No ductal dilatation 3. The technologist reports a negative sonographic Lino sign. Electronically signed by: Geovanny Hedrick M.D. 03/14/2019 6:30 AM
[2019-03-14] MEDS ORDERED: ONDANSETRON INJ 2 MG/ML 2 ML VIAL IV PRN (08:15)
[2019-03-14] MEDS ORDERED: ACETAMINOPHEN 325 MG TAB PO PRN (08:15)
[2019-03-14] MEDS ORDERED: SODIUM CHLORIDE 0.9% 1000ML 1,000 ML IV SCH (08:15)
[2019-03-14] MEDS ORDERED: MoRPHine SULFATE 4 MG/ML 1 ML CARP\\VIAL IV PRN (08:15)
--- NOTE | 2019-03-14 08:42 | History & Physical Report ---
Date of Service March 14, 2019 Assessment & Plan (1) Acute biliary pancreatitis: Patient with signs and symptoms consistent with acute pancreatitis. The patient does have a slight elevation of her AST and ALT suggestive of passage of a gallstone through the common bile duct. The patient's bilirubin is presently normal, given this would suggest further evaluation with imaging (MRCP ordered). I would recommend continued IV hydration with LR at 150 to 200 mL/h. If the MRCP is positive we will then make arrangements for ERCP at the next available. Recommendations Continue IV hydration, LR 150 to 200 mL/h Consider use of a prophylactic antibiotic Zosyn or Unasyn Pain control per medicine service MRCP ordered N.p.o. Surgical consultation History of Present Illness Chief Complaint: Abdominal pain Primary Care Provider: Nora Darling MD 33-year-old female with a history of abdominal pain found to have evidence of acute pancreatitis. She recently delivered her first baby 6 weeks ago and developed sudden onset abdominal pain over 24 hours ago. She notes that she has had intermittent discomfort over the past few years. The pain was initially unremitting and now seems to be slowly improving. She was found to have elevation of her AST and ALT with evidence of lipase elevation as well. The patient denies having fevers, chills sweats or rigors. Patient's family history is notable for Crohn's disease in her father, no history of colon cancer, stomach cancer or esophageal cancer. Allergies Allergy/AdvReac Type Severity Reaction Status Date / Time No Known Allergies Allergy Verified 03/14/19 04:08 Home Medications Home Medications Medication Instructions Recorded Confirmed Type PNV cmb#95-ferrous fumarate-FA 1 tab PO DAILY 07/05/18 03/14/19 History [ Multivitamins] cetirizine 10 mg tablet 10 mg PO DAILY PRN tab 03/06/19 03/14/19 History mometasone 50 mcg/actuation nasal 1 spray INTRANASAL DAILY PRN #1 gm 03/06/19 03/14/19 History spray norethindrone (contraceptive) 0.35 0.35 mg PO DAILY #28 tab 03/13/19 03/14/19 Rx mg tablet Past Med/Surg History Medical History Term Surgical History H/O LEEP H/O wisdom tooth extraction Family History Father Crohn's disease Hypertension Hypercholesteremia Deep vein thrombosis Prostate cancer Unknown Allergic rhinitis Grandmother Bone cancer Diabetes Grandfather Stomach cancer Other Cancer Kidney disease Lung disease Seizures Social History Preferred Language: Mexican Communication Ability: Effective 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 Beliefs That Will Affect Care: None marital status: Current Living Situation: Spouse and Family current occupational status: employed Other Information That Helps Us Care for You: No Feels Safe at Home: Yes Safety Concerns: Feels Safe At This Time Smoking Status: Never smoker Hx Alcohol Use: No Hx Substance Use: No Review of Systems no sweats no diplopia no nasal discharge and no foul smell no change in sputum and no hemoptysis no chest pain with activity and no dyspnea at rest + abdominal pain, + bloating and + nausea; no early satiety, no vomiting, no hematemesis and no pain with swallowing no urinary frequency no radicular pain no falls and no paralysis no hopelessness no polydipsia no coagulopathy Physical Exam Constitutional: well developed; not ill appearing Eyes: PERRL, conjunctivae normal, anicteric sclerae No scleral icterus noted Neck: trachea midline, no thyromegaly Respiratory: normal respiratory effort, lungs clear to auscultation Cardiovascular: Rate/Rhythm: regular rate Gastrointestinal (Abdomen): Inspection/Auscultation: abdomen not distended Percussion/Palpation: + abdomen tender; no guarding and abdomen not rigid Mild right upper quadrant tenderness noted Skin: no rashes, warm and dry Neurologic: Speech / Cognition: normal speech Motor/Sensory: no tremor Results & Data Vital Signs (Past 12 Hours) Vital Signs Temp Pulse Pulse Resp BP BP Pulse Ox 03/14/19 07:30 36.8 C 73 20 138/81 98 03/14/19 07:28 58 L 16 127/84 97 03/14/19 06:40 70 18 123/77 97 03/14/19 04:50 76 16 112/74 98 03/14/19 03:33 36.6 C 79 20 137/87 100 Laboratory Results Laboratory Results - last 24 hr 09/01/2303/14/19 03/14/19 04:38 04:38 04:40 WBC 9.59 RBC 4.10 L Hgb 12.2 Hct 36.8 L MCV 89.8 MCH 29.8 MCHC 33.2 RDW Std Deviation 42.0 RDW Coeff of Diana 12.9 Plt Count 278 MPV 9.3 Immature Gran % (Auto) 0.3 Neut % (Auto) 76.2 Lymph % (Auto) 13.9 [place] % (Auto) 8.3 Eos % (Auto) 1.0 Baso % (Auto) 0.3 Immature Gran # (Auto) 0.03 H Neut # (Auto) 7.30 H Lymph # (Auto) 1.33 [place] # (Auto) 0.80 H Eos # (Auto) 0.10 Baso # (Auto) 0.03 Sodium 141 Potassium 3.7 Chloride 108 H Carbon Dioxide 26 Anion Gap 7.0 BUN 15 Creatinine 0.76 Est Cr Clr Drug Dosing 112.3 Est GFR ( Amer) 121.1 Est GFR (Non-Af Amer) 104.5 BUN/Creatinine Ratio 19.1 Glucose 91 Calcium 8.8 Total Bilirubin 0.6 AST 125 H ALT 116 H Alkaline Phosphatase 112 Total Protein 7.9 Albumin 3.8 Globulin 4.1 H Albumin/Globulin Ratio 0.9 Lipase 5602 H Urine Color Yellow Urine Appearance Cloudy A Urine pH 7.0 Ur Specific [place] 1.025 Urine Protein Negative Urine Glucose (UA) Negative Urine Ketones Negative Urine Blood 1+ H Urine Nitrite Negative Urine Bilirubin Negative Urine Urobilinogen Negative Ur Leukocyte Esterase Negative Urine WBC (Auto) 1-5 Urine RBC (Auto) 0-4 U Hyaline Cast (Auto) 1-5 U Epithel Cells (Auto) 10-20 H Urine Bacteria (Auto) Negative Diagnostic Findings BILIARY ULTRASOUND CLINICAL HISTORY: intermittent epigastric pain COMPARISON STUDY: No previous studies for comparison. FINDINGS: The pancreas appears sonographically normal. No hepatic masses are visualized. There is no ductal dilatation. The common bile duct measured 5 mm. There is no right-sided hydronephrosis. Multiple gallstones are visualized. There was mild gallbladder wall thickening. There is a probable tiny incidental 2 mm gallbladder polyp. The technologist reports a negative sonographic Lino sign. If there is clinical concern is the presence of acute cholecystitis, a nuclear medicine hepatobiliary study could be obtained in follow-up to assess cystic duct patency. IMPRESSION: 1. Cholelithiasis and mild gallbladder wall thickening 2. No ductal dilatation 3. The technologist reports a negative sonographic Lino sign. Code Status & VTE Plan VTE Prophylaxis Plan VTE Prophylaxis will be ordered: Yes
[2019-03-14] MEDS ORDERED: PIPERACILL/TAZOBAC CONSULT ACTIVE PRN (09:06)
[2019-03-14] MEDS ORDERED: PIPERACILLIN/TAZOBACTAM 3.375 GM in DEXTROSE 5% 100 ML IV SCH (09:15)
[2019-03-14] MEDS ORDERED: PIPERACILLIN/TAZOBACTAM 3.375 GM in DEXTROSE 5% 100 ML IV ONE (10:00)
[2019-03-14] MEDS: PRENATAL VITAMIN 1 TAB PO SCH (10:17)
--- NOTE | 2019-03-14 10:27 | Surgery Consultation ---
Date of Consultation March 14, 2019 Assessment & Plan (1) Acute gallstone pancreatitis: Normally gallstone pancreatitis we will consider removal of her gallbladder during this admission As she is at high risk recurrence over the next several weeks We will consider laparoscopic cholecystectomy during this admission After further discussion with the patient he wishes to proceed with laparoscopic cholecystectomy And possible cholangiogram. Her MRCP did not show any filling defects Hopefully this will be performed tomorrow morning History of Present Illness Attending Physician: Eder Crowell MD Patient admitted to the emergency room with upper abdominal pain This is been recurrent over the past month She has an elevated lipase indicating pancreatic inflammation And evidence on ultrasound of gallstones and a mildly thickened gallbladder She has mildly elevated transaminases but her total bilirubin is normal Is approximately 5 weeks He was seen by Dr. Gupta gastroenterology-he ordered an MRCP would consider ERCP Depending on the findings and her progress Allergies Allergy/AdvReac Type Severity Reaction Status Date / Time No Known Allergies Allergy Verified 03/14/19 04:08 Home Medications Home Medications Medication Instructions Recorded Confirmed Type PNV cmb#95-ferrous fumarate-FA 1 tab PO DAILY 07/05/18 03/14/19 History [ Multivitamins] cetirizine 10 mg tablet 10 mg PO DAILY PRN tab 03/06/19 03/14/19 History mometasone 50 mcg/actuation nasal 1 spray INTRANASAL DAILY PRN #1 gm 03/06/19 03/14/19 History spray norethindrone (contraceptive) 0.35 0.35 mg PO DAILY #28 tab 03/13/19 03/14/19 Rx mg tablet Patient History Medical History Term Surgical History H/O LEEP H/O wisdom tooth extraction Family History Father Crohn's disease Hypertension Hypercholesteremia Deep vein thrombosis Prostate cancer Unknown Allergic rhinitis Grandmother Bone cancer Diabetes Grandfather Stomach cancer Other Cancer Kidney disease Lung disease Seizures Social History Preferred Language: Mongolian Communication Ability: Effective 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 Beliefs That Will Affect Care: None marital status: Current Living Situation: Spouse and Family current occupational status: employed Other Information That Helps Us Care for You: No Feels Safe at Home: Yes Safety Concerns: Feels Safe At This Time Smoking Status: Never smoker Hx Alcohol Use: No Hx Substance Use: No Physical Exam Physical Exam: Patient is awake and alert in no distress Constitutional: well developed and well nourished; no acute distress Eyes: + anicteric sclerae Respiratory: normal respiratory effort; no respiratory distress Cardiovascular: Rate/Rhythm: regular rate Gastrointestinal (Abdomen): Percussion/Palpation: abdomen soft Skin: no rashes, warm and dry Neurologic: awake Psychiatric: Orientation: alert Results & Data Vital Signs (Past 12 Hours) Vital Signs Temp Pulse Pulse Resp BP BP Pulse Ox 03/14/19 07:30 36.8 C 73 20 138/81 98 03/14/19 07:28 58 L 16 127/84 97 03/14/19 06:40 70 18 123/77 97 03/14/19 04:50 76 16 112/74 98 03/14/19 03:33 36.6 C 79 20 137/87 100 I reviewed her ultrasound and laboratory studies PG Care Time/CCT Total # of Minutes Spent Total Time Spent with Patient: Total time spent is greater than 50% in coordination of care (as documented) at patient's floor/unit and/or counseling patient:
--- NOTE | 2019-03-14 11:11 | Magnetic Resonance Report ---
MR MRCP CLINICAL HISTORY: Abdominal pain. Cholelithiasis. Evaluate for common bile duct calculi. COMPARISON STUDY: Ultrasound dated 03/14/2019 FINDINGS: A breath-hold MRCP was performed. Images were acquired in the coronal and axial planes. MIP images were reconstructed. There are multiple gallstones. There is mild gallbladder wall thickening/pericholecystic fluid. The pancreatic duct appears normal. There is no evidence of intra or extrahepatic biliary ductal dilatation. The common bile duct measure s 5 mm. No common bile duct calculi are visualized. IMPRESSION: 1. Cholelithiasis with mild gallbladder wall thickening/pericholecystic fluid 2. No evidence of biliary or pancreatic ductal dilatation. 3. No common bile duct calculi identified. Electronically signed by: Geovanny Hedrick M.D. 03/14/2019 11:10 AM
--- NOTE | 2019-03-14 11:32 | History and Physical Report ---
DATE OF ADMISSION: 03/14/2019 CHIEF COMPLAINT: Back pain, abdominal pain. HISTORY OF PRESENT ILLNESS: This is a 33-year-old female with no significant past medical history, she is 5 weeks , comes with back and abdominal pain. The patient reports since 34-week having back pain radiating to the middle of the abdomen on and off and is getting more severe last few weeks. It lasts for few hours and goes away. It does not associate with food, but pain is mostly in the night associated with some nausea and vomiting. Last night at 11:00 p.m. the pain started, lasted for about 5 hours. Currently, she is pain free, vomited once. Denies any diarrhea or constipation. No blood in the stools or black stools. No burning micturition, no hematuria. She is . Denies any fever, chills. No chest pain, no shortness of breath, no headache, no dizziness, no blurred vision, no earaches, no runny nose, no sore throat, no difficulty swallowing. Appetite is okay. Not sleeping well because of her baby. Ambulating okay. Currently resting comfortably and hemodynamically stable. IMAGING STUDIES: Ultrasound done in the ER unofficial report shows gallstones. Lipase is elevated at 5600. ALLERGIES: No known drug allergies. PAST MEDICAL HISTORY: As mentioned above. PAST SURGICAL HISTORY: , wisdom tooth. MEDICATIONS: vitamins. FAMILY HISTORY: Father had prostate cancer, skin cancer and hypertension. Lot of cancer in the family. SOCIAL HISTORY: Smoked for 1 year when she was 22-year-old. No alcohol, no drug use. REVIEW OF SYMPTOMS: As per HPI. Rest of review of symptoms negative. PHYSICAL EXAMINATION: GENERAL: The patient is of moderate build, not in acute distress. VITAL SIGNS: Temperature 36.6, pulse 76, respiratory rate 16, blood pressure 112/74, oxygen 98% room air. HEENT: No pallor, no icterus. Pupils equal, round, reactive to light. NECK: No JVD, no neck masses, no carotid bruit. CARDIOVASCULAR: S1, S2 heard. Regular rate and rhythm. No murmur, no gallop. RESPIRATORY SYSTEM: Normal AP diameter. No accessory muscle use. No wheezing, no crackles. ABDOMEN: Soft, bowel sounds present. Mild diffuse tenderness. No guarding or rigidity. CENTRAL NERVOUS SYSTEM: Cranial nerves II-XII grossly intact, nonfocal. EXTREMITIES: No edema, no erythema. LABORATORY DATA: WBC 9.5, hemoglobin 12.2, hematocrit 36.8, platelets 278. Sodium 141, potassium 3.7, chloride 108, bicarb 26, BUN 15, creatinine 0.7, serum glucose 91, calcium 8.8. Total bilirubin 0.6, AST 125, ALT 116, alkaline phosphatase 112, total protein 7.9, lipase 5600. Urinalysis negative Chest x-ray: No acute disease in the chest. Gallbladder ultrasound shows cholelithiasis, mild gallbladder thickening, no ductal dilatation. EKG: Normal sinus rhythm with sinus arrhythmia at rate of 71 , nonspecific T- wave abnormalities. ASSESSMENT AND PLAN: This is a 33-year-old female who presents with back pain radiating to abdomen associated with nausea. Lab work showed elevated lipase and ultrasound showed multiple gallstones. 1. Back pain radiating to the abdomen. Gallbladder ultrasound shows multiple gallstones, no obvious signs of cholecystitis, no fever, no leukocytosis. Possible biliary colic. Pain is coming on and off since last few weeks and mostly the nights associated with nausea. We will consult Surgery for possible biliary colic and further workup as per Surgery. 2. Possible pancreatitis. Lipase is 5600 and having abdominal pain. Had 1 episode of nausea and vomiting. Gallbladder ultrasound shows gallstones. AST/ALT slightly elevated, but total bilirubin and alkaline phosphatase are normal. We will follow and repeat LFTs. Repeat lipase in a.m. and we will keep her n.p.o., IV normal saline 200 mL per hour, IV zofran p.r.n., IV morphine p.r.n. and consult GI for further recommendations. 3. status. . 4. Deep venous thrombosis prophylaxis. SCDs for now. 5. Disposition. Admit to medical floor. Expect to discharge home and follow with the family doctor. Level 1 full code. MTDD
[2019-03-14] MEDS: LACTATED RINGER'S 1,000 ML IV SCH ×2 (11:33→18:18)
[2019-03-14] MEDS: PIPERACILLIN/TAZOBACTAM 3.375 GM in DEXTROSE 5% 100 ML IV SCH ×2 (14:29→21:11)
[2019-03-14 14:41] LABS: Albumin Level 3.2 gm/dl (3.4-5.0); Bilirubin Direct 0.1 mg/dl (0-0.2); Bilirubin,Total 0.4 mg/dl (0.2-1); Total Protein 6.9 gm/dl (6.4-8.2)
--- NOTE | 2019-03-14 15:59 | Hospitalist Progress Note ---
Date of Service March 14, 2019 Assessment & Plan (1) Acute gallstone pancreatitis: -MRCP was performed 1. Cholelithiasis with mild gallbladder wall thickening/pericholecystic fluid 2. No evidence of biliary or pancreatic ductal dilatation. 3. No common bile duct calculi identified. -continue IV Zosyn empirically, follow blood cultures -continue lactated ringers at 150 cc/hr -prn pain medications and prn antiemetics -allow for clear liquid diet today -patient is NPO after midnight for general surgery to perform cholecystecomy on 03/15/19 -gastronteronology service also following the patient status -patient has breast pumping accessory Deep venous thrombosis prophylaxis. SCDs, ambulation as tolerated Full Code Subjective no acute abdomen pain at this time. no fever. no vomiting. no headache. no dizziness. no lightheadedness. patient has been evaluated by general surgery and gastroenterology and general impression is for surgical intervention tomorrow for the recurrent gallbladder associated pain Physical Exam Constitutional: comfortable Eyes: PERRL, conjunctivae normal, anicteric sclerae EOM intact bilaterally ENMT: external ear and nose normal, oropharynx normal Neck: normal visual inspection Respiratory: normal respiratory effort, lungs clear to auscultation Cardiovascular: RRR, no murmur, no edema Gastrointestinal (Abdomen): soft, bowel sound present Musculoskeletal: Head/Neck/Chest: normocephalic and head atraumatic Neurologic: PERRL, EOMI, accommodation nl, no face palsy, no dysarthria CN's II-XI intact bilaterally Psychiatric: A+Ox3, euthymic affect Results & Data Vital Signs (Past 12 Hours) Vital Signs Temp Pulse Pulse Resp BP BP Pulse Ox 03/14/19 07:30 36.8 C 73 20 138/81 98 03/14/19 07:28 58 L 16 127/84 97 03/14/19 06:40 70 18 123/77 97 03/14/19 04:50 76 16 112/74 98
[2019-03-15] MEDS: LACTATED RINGER'S 1,000 ML IV SCH ×2 (01:05→05:02)
[2019-03-15] MEDS: PIPERACILLIN/TAZOBACTAM 3.375 GM in DEXTROSE 5% 100 ML IV SCH ×3 (05:03→21:36)
[2019-03-15 05:34] LABS: Basophils # (auto) 0.04 K/uL (0-0.2); Basophils % (auto) 0.7 %; Eosinophils # (auto) 0.18 K/uL (0-0.5); Eosinophils % (auto) 3.3 %; Hematocrit (blood only) 33.5 % (37-47); Hemoglobin 10.8 g/dL (12.0-16.0); Immature Granulocytes # (auto) 0.01 K/uL (0.00-0.02); Immature Granulocytes % (auto) 0.2 %; Lymphocytes # (auto) 2.48 K/uL (1.2-3.4); Lymphocytes % (auto) 45.1 %; Mean Corpuscular Hgb Conc 32.2 g/dL (32-36); Mean Corpuscular Volume 89.3 fL (80-100); Mean Platelet Volume 9.3 fL (7.4-10.4); Monocytes # (auto) 0.54 K/uL (0.11-0.59); Monocytes % (auto) 9.8 %; Neutrophils # (auto) 2.25 K/uL (1.4-6.5); Neutrophils % (auto) 40.9 %; Platelet Count 249 K/uL (130-400); RDW Coefficient of Variation 12.8 % (11.5-14.5); RDW Standard Deviation 41.8 fL (36.4-46.3); Red Blood Count 3.75 M/uL (4.2-5.4)
[2019-03-15 06:09] LABS: BUN Creatinine Ratio 10.5 (10-20); Calcium 8.5 mg/dl (8.5-10.1); Creatinine Clr Calc Pharmacy 123.7 ml/min; Est GFR (African American) 134.4; Magnesium 1.8 mg/dl (1.8-2.4); Potassium 3.8 mmol/L (3.5-5.1)
--- NOTE | 2019-03-15 06:12 | History & Physical Bridge Note ---
Date of Service March 15, 2019 History & Physical Bridge Note I have examined the patient, reviewed the History & Physical and in the interval since the performance of the History & Physical I have noted the following changes of clinical significance: no changes noted
[2019-03-15] MEDS ORDERED: CONRAY 60% 50 ML VIAL ONE (06:53)
[2019-03-15] MEDS ORDERED: BUPIVACAINE/EPINEPHRINE 0.5% MPF 1:200,000 30 ML VIAL ONE (06:53)
[2019-03-15] MEDS ORDERED: ONDANSETRON INJ 2 MG/ML 2 ML VIAL ONE (06:59)
[2019-03-15] MEDS ORDERED: fentaNYL citrate 100 MCG/2 ML VIAL ONE ×3 (06:59→08:39)
[2019-03-15] MEDS ORDERED: LIDOCAINE HCL 2% 2 ML VIAL/AMP(20MG/ML) INFIL ONE (06:59)
[2019-03-15] MEDS ORDERED: DEXAMETHASONE SOD INJ 4 MG/ML VIAL ONE (06:59)
[2019-03-15] MEDS ORDERED: MIDAZOLAM HCL 1 MG/ML 2ML VIAL ONE (06:59)
[2019-03-15] MEDS ORDERED: PROPOFOL IV EMULSION 10 MG/ML 20 ML VIAL IV ONE (06:59)
[2019-03-15] MEDS ORDERED: ACETAMINOPHEN 1000 MG/100 ML IV IV ONE (07:11)
[2019-03-15] MEDS ORDERED: LARYING-O-JET KIT (LTA) ONE (07:21)
[2019-03-15] MEDS ORDERED: SCOPOLAMINE 1.5 MG TDSY ONE (07:25)
[2019-03-15 07:26] LABS: Alanine Aminotransferase 137 U/L (12-78); Albumin Level 3.3 gm/dl (3.4-5.0); Alkaline Phosphatase 93 U/L (45-117); Aspartate Aminotransferase 58 U/L (15-37); Bilirubin Direct < 0.1 mg/dl (0-0.2); Bilirubin,Total 0.4 mg/dl (0.2-1); Total Protein 6.5 gm/dl (6.4-8.2)
[2019-03-15] MEDS ORDERED: ePHEDrine sulfate 50 MG/ML AMP IV PRN (07:30)
[2019-03-15] MEDS ORDERED: HYDROmorphone INJ 1 MG/ML SYRINGE IV PRN (07:30)
[2019-03-15] MEDS ORDERED: ATROPINE SULFATE 0.1 MG/ML 10ML SYR IV PRN (07:30)
--- NOTE | 2019-03-15 07:30 | Anesthesiology Consultation ---
Date of Service March 15, 2019 Assessment & Plan (1) Encounter for pre-operative examination: Chart Review Chart Review: Acceptable Risk for Surgery and Patient NOT seen in Pre Admission Testing Consults Requested none History Surgery Operation Date: 03/15/19 07:30 Proposed Procedures p Laparoscopic Cholecystectomy with Cholangiogram - Camron Raines MD, FACS Height/Weight Height: 5 ft 6 in Weight: 76.9 kg Allergies Allergy/AdvReac Type Severity Reaction Status Date / Time No Known Allergies Allergy Verified 03/14/19 04:08 Medications Home Medications Medication Instructions Recorded Confirmed Last Taken PNV cmb#95-ferrous fumarate-FA 1 tab PO DAILY 07/05/18 03/14/19 02/03/19 22:00 [ Multivitamins] cetirizine 10 mg tablet 10 mg PO DAILY PRN tab 03/06/19 03/14/19 Unknown mometasone 50 mcg/actuation nasal 1 spray INTRANASAL DAILY PRN #1 gm 03/06/19 03/14/19 Unknown spray norethindrone (contraceptive) 0.35 0.35 mg PO DAILY #28 tab 03/13/19 03/14/19 Unknown mg tablet Active Medications Generic Name Dose Route Start Last Admin Trade Name Freq PRN Reason Stop Dose Admin Lactated Ringer's 1,000 mls @ 150 mls/hr 03/14/19 09:00 03/15/19 05:02 Lr IV 04/13/19 08:59 150 mls/hr .[id number] RADHA Administration Piperacillin Sod/Tazobactam 115 mls @ 28.75 mls/hr 03/14/19 14:00 03/15/19 05:03 Sod 3.375 gm/ Dextrose IV 03/16/19 13:59 28.8 mls/hr Q8H RADHA Administration Protocol Prenat Multivit/Dundy/Iron/Folic Ac 1 tab 03/14/19 09:00 03/14/19 10:17 Vitamin PO 04/13/19 08:59 Not Given DAILY RADHA NPO Date Last Intake of Fluids: 03/14/19 Time Last Intake of Fluids: 20:00 Last Intake of Fluids Comment: NPO since 0000 with sips and chips Date Last Intake of Solids: 03/14/19 Time Last Intake of Solids: 00:00 Past Medical History Medical History Term Past Family History Family History Father Crohn's disease Hypertension Hypercholesteremia Deep vein thrombosis Prostate cancer Unknown Allergic rhinitis Grandmother Bone cancer Diabetes Grandfather Stomach cancer Other Cancer Kidney disease Lung disease Seizures Past Surgical History Surgical History H/O LEEP H/O wisdom tooth extraction Social History Smoking Status: Never smoker Hx Alcohol Use: No Hx Substance Use: No Physical Exam Vital Signs Last Vital Signs Temp 36.8 C 03/15/19 07:03 Pulse 67 03/15/19 07:03 Resp 16 03/15/19 07:03 BP 121/74 03/15/19 07:03 Pulse Ox 98 03/15/19 07:03 Testing Laboratory Results 03/15/19 05:13 03/15/19 05:13 Urine Color Yellow 03/14/19 04:40 Urine Appearance Cloudy (Clear) A 03/14/19 04:40 Urine pH 7.0 (4.5-7.5) 03/14/19 04:40 Ur Specific [place] 1.025 (1.000-1.030) 03/14/19 04:40 Urine Protein Negative (Negative) 03/14/19 04:40 Urine Glucose (UA) Negative (Negative) 03/14/19 04:40 Urine Ketones Negative (Negative) 03/14/19 04:40 Urine Nitrite Negative (Negative) 03/14/19 04:40 Ur Leukocyte Esterase Negative (Negative) 03/14/19 04:40 Urine WBC (Auto) 1-5 /hpf (0-5) 03/14/19 04:40 Urine RBC (Auto) 0-4 /hpf (0-4) 03/14/19 04:40 U Hyaline Cast (Auto) 1-5 /lpf (0-5) 03/14/19 04:40 U Epithel Cells (Auto) 10-20 /lpf (0-5) H 03/14/19 04:40 Urine Bacteria (Auto) Negative (Negative) 03/14/19 04:40
[2019-03-15] MEDS ORDERED: ROCURONIUM BROMIDE 10 MG/ML 5 ML VIAL ONE (08:10)
[2019-03-15] MEDS ORDERED: GLYCOPYRROLATE 0.2 MG/ML VIAL ONE ×2 (08:10→08:31)
[2019-03-15] MEDS ORDERED: NEOSTIGMINE METHYLSULFATE 5 MG/5 ML SYR ONE (08:10)
[2019-03-15] MEDS ORDERED: KETOROLAC 30 MG/ML VIAL ONE (08:24)
--- NOTE | 2019-03-15 08:36 | Operative Report ---
Post Operative Report Pre & Post Diagnosis Operation Date: 03/15/19 07:30 Pre-Op Diagnosis: BACK PAIN/ABD PAIN Post-Op Diagnosis: Cholelithiasis , gallstone pancreatitis Procedure Operation Date: 03/15/19 07:30 Actual Procedures p Laparoscopic Cholecystectomy with Cholangiogram(Not Applicable) - Camron Raines MD, FACS Surgeon Camron Raines MD, FACS Tube Sorter nurses Estimated Blood Loss 5 Findings Consistent with Post-Op Diagnosis Specimens gallbladder Description of Procedure see dictation I attest to the content of the Intraoperative Record and any orders documented therein. Any exceptions are noted below.
[2019-03-15] MEDS ORDERED: ACETAMINOPHEN 1,000 MG/100 ML VIAL IV ONE (08:40)
[2019-03-15] MEDS ORDERED: ONDANSETRON INJ 2 MG/ML 2 ML VIAL IV STA (09:03)
--- NOTE | 2019-03-15 09:21 | Anesthesiology Progress Note ---
Date of Service March 15, 2019 Anesthesia Post Procedure Vital Signs Vital Signs: Temp Pulse Resp BP Pulse Ox 03/15/19 09:15 36.8 C 66 16 143/88 H 100 03/15/19 09:05 64 16 135/87 100 03/15/19 08:55 98 H 16 160/72 H 100 03/15/19 08:45 37.0 C 87 16 126/80 100 03/15/19 07:03 36.8 C 67 16 121/74 98 03/14/19 23:10 36.9 C 70 16 119/68 98 03/14/19 16:45 36.4 C L 73 16 115/77 100 Pain Intensity Back: Pain Intensity: 1 Transfer of Care Handoff Completed per policy Notes Mental Status: alert / awake / arousable Patient Amnestic to Procedure: Yes Nausea / Vomiting: adequately controlled Pain: adequately controlled Airway Patency, RR, SpO2: stable & adequate BP & HR: stable & adequate Hydration State: stable & adequate Anesthetic Complications: no major complications apparent and Pt Satisfied with anesthetic care
[2019-03-15] MEDS ORDERED: PROMETHAZINE HCL 12.5 MG in SODIUM CHLORIDE 0.9% 50 ML IV PRN (09:35)
[2019-03-15] MEDS ORDERED: MoRPHine SULFATE 2 MG/ML CARP IV PRN ×2 (09:35)
[2019-03-15] MEDS ORDERED: IBUPROFEN 600 MG TAB PO PRN (09:35)
[2019-03-15] MEDS ORDERED: ONDANSETRON INJ 2 MG/ML 2 ML VIAL IV PRN (09:35)
[2019-03-15] MEDS ORDERED: ACETAMINOPHEN 325 MG TAB PO PRN (09:35)
[2019-03-15] MEDS: HYDROmorphone INJ 0.5 MG/0.5 ML SYR IV PRN ×2 (10:23→10:51)
--- NOTE | 2019-03-15 11:20 | Hospitalist Progress Note ---
Date of Service March 15, 2019 Assessment & Plan (1) Acute gallstone pancreatitis: -33-year-old female with no significant past medical history, she is 5 weeks , comes with back and abdominal pain. The patient reports since 34-week having back pain radiating to the middle of the abdomen on and off and is getting more severe last few weeks -admission lipase 5600 with transaminitis and upper level or normal levels of alkaline phosphatase -Gallbladder Ultrasound 03/14/19: Cholelithiasis and mild gallbladder wall thickening; No ductal dilatation -MRCP was performed 03/14/19 1. Cholelithiasis with mild gallbladder wall thickening/pericholecystic fluid 2. No evidence of biliary or pancreatic ductal dilatation. 3. No common bile duct calculi identified. -blood cultures were drawn on 03/14/19 and patient was empirically started on IV Zosyn empirically on 03/14/19 -patient received IV fluids, lipase normalized by AM of 03/15/19 and transaminitis improved - s/p Laparoscopic Cholecystectomy with Cholangiogram on 03/15/19 and as per surgery note there is post-op diagnosis of Cholelithiasis , gallstone pancreatitis -continue IV fluids and prn pain medications and prn antiemetics Transaminitis -follow LFTs, follow lipase status -patient has breast pumping accessory Deep venous thrombosis prophylaxis. SCDs, ambulation as tolerated Full Code Subjective Patient seen and examined after Laparoscopic Cholecystectomy. She was in some pain and worried as to recurrent pain radiating to back despite the surgery. Patient received pain medications and was more calm and comfortable and discussed with patient that referred pain may be from recent surgery manipulation for gallbladder removal versus other causes of referred pain such as biliary spasm or pancreatitis patient breathing comfortable. no chest pain. no dizziness. no headache. no vomiting Physical Exam Constitutional: comfortable Eyes: PERRL, conjunctivae normal, anicteric sclerae EOM intact bilaterally ENMT: external ear and nose normal, oropharynx normal Neck: normal visual inspection Respiratory: normal respiratory effort, lungs clear to auscultation Cardiovascular: RRR, no murmur, no edema Gastrointestinal (Abdomen): dressing over laproscopic incissions, abdomen is soft Musculoskeletal: Head/Neck/Chest: normocephalic and head atraumatic Neurologic: PERRL, EOMI, accommodation nl, no face palsy, no dysarthria CN's II-XI intact bilaterally Psychiatric: A+Ox3, euthymic affect Results & Data Vital Signs (Past 12 Hours) Vital Signs Temp Pulse Resp BP Pulse Ox 03/15/19 10:36 36.8 C 69 18 136/85 100 03/15/19 10:10 36.6 C 68 18 129/85 100 03/15/19 09:35 36.6 C 67 18 148/88 H 98 03/15/19 09:15 36.8 C 66 16 143/88 H 100 03/15/19 09:05 64 16 135/87 100 03/15/19 08:55 98 H 16 160/72 H 100 03/15/19 08:45 37.0 C 87 16 126/80 100 03/15/19 07:03 36.8 C 67 16 121/74 98
[2019-03-15] MEDS: HYDROCODONE/ACETAMOPHEN 5/325MG TAB PO PRN ×4 (12:28→23:39)
[2019-03-15] MEDS: SODIUM CHLORIDE 0.9% 1000ML 1,000 ML IV SCH (12:29)
--- NOTE | 2019-03-15 13:27 | Operative Report ---
DATE OF OPERATION: 03/15/2019 NAME OF OPERATION: Laparoscopic cholecystectomy with intraoperative cholangiogram. PREOPERATIVE DIAGNOSIS: Gallstone pancreatitis. POSTOPERATIVE DIAGNOSIS: Gallstone pancreatitis. STAFF SURGEON: Camron Raines MD. ANESTHESIA: General. DESCRIPTION OF PROCEDURE: The patient was brought in the operating room and placed on the operating table in supine position. Pneumatic stockings, orogastric tube were placed. Her abdomen was prepped and draped in usual fashion. 0.5% plain Marcaine was used to anesthetize all incisions. Incision was made just at the upper part of the umbilicus, carrying dissection down to the fascia, placing a Veress needle producing pneumoperitoneum. An 11 mm port was placed this level and then under visualization, three 5 mm ports were placed, 1 cephalad and 2 laterally. Gallbladder was grasped and retracted. There were adhesions to the gallbladder. These were taken down. The gallbladder was aspirated of bile. Dissection was carried out at the ivan hepatis, identifying the cystic duct. It was clipped at the level of the gallbladder then opened partially and then cholangiogram performed showing no filling defects with good flow into the duodenum. The cystic duct was then clipped and transected. The cystic artery identified, clipped and transected and the gallbladder dissected away from the liver in the usual fashion. After appropriate hemostasis and irrigation, the gallbladder was placed in an Endobag and then removed through the umbilical site. All ports were then removed. The umbilical fascia closed using interrupted 0 Vicryl suture. Skin at the umbilicus closed using interrupted 5-0 Prolene suture and then the other site was closed using subcuticular 4-0 Monocryl and Steri-Strips. The patient was transferred to recovery room in stable condition. I attest to the content of the Intraoperative Record and any orders documented therein. Any exception s are noted below.
[2019-03-15] MEDS: PRENATAL VITAMIN 1 TAB PO SCH (14:20)
[2019-03-15] MEDS: HYDROmorphone INJ 1 MG/ML SYRINGE IV PRN ×2 (15:19→20:24)
--- NOTE | 2019-03-15 17:29 | Fluoroscopy Report ---
INTRAOPERATIVE RADIOGRAPHS CLINICAL HISTORY: Intraoperative cholangiogram. Fluoroscopy time: 9 seconds. FINDINGS: 3 spot fluoroscopic views of the right upper quadrant from an intraoperative cholangiogram are presented. Correlation is made with MRCP dated 03/14/2019. The gallbladder surgically absent. There is smooth contrast a patient of the common bile duct. A balloon is present within the proximal commo n bile duct. No intraluminal filling defects identified to suggest choledocholithiasis. There is free spillage of contrast into the duodenum. IMPRESSION: Intraoperative cholangiogram images as above. Electronically signed by: Daniel Mims M.D. 03/15/2019 5:28 PM
[2019-03-16] MEDS: PIPERACILLIN/TAZOBACTAM 3.375 GM in DEXTROSE 5% 100 ML IV SCH (05:38)
[2019-03-16 05:39] LABS: Basophils # (auto) 0.02 K/uL (0-0.2); Basophils % (auto) 0.2 %; Eosinophils # (auto) 0.11 K/uL (0-0.5); Eosinophils % (auto) 1.3 %; Hematocrit (blood only) 32.5 % (37-47); Hemoglobin 10.6 g/dL (12.0-16.0); Immature Granulocytes # (auto) 0.03 K/uL (0.00-0.02); Immature Granulocytes % (auto) 0.4 %; Lymphocytes # (auto) 2.44 K/uL (1.2-3.4); Lymphocytes % (auto) 29.2 %; Mean Corpuscular Hgb Conc 32.6 g/dL (32-36); Mean Corpuscular Volume 88.8 fL (80-100); Mean Platelet Volume 9.3 fL (7.4-10.4); Monocytes # (auto) 0.78 K/uL (0.11-0.59); Monocytes % (auto) 9.3 %; Neutrophils # (auto) 4.98 K/uL (1.4-6.5); Neutrophils % (auto) 59.6 %; Platelet Count 279 K/uL (130-400); RDW Coefficient of Variation 12.7 % (11.5-14.5); RDW Standard Deviation 41.1 fL (36.4-46.3); Red Blood Count 3.66 M/uL (4.2-5.4); White Blood Count 8.36 K/uL (4.8-10.8)
[2019-03-16] MEDS: HYDROCODONE/ACETAMOPHEN 5/325MG TAB PO PRN ×2 (05:44→10:29)
[2019-03-16 06:09] LABS: Albumin Level 2.8 gm/dl (3.4-5.0); BUN Creatinine Ratio 11.8 (10-20); Creatinine Clr Calc Pharmacy 135.5 ml/min; Est GFR (African American) 138.5; Est GFR (Non-African American) 119.5; Magnesium 1.7 mg/dl (1.8-2.4); Potassium 3.4 mmol/L (3.5-5.1)
[2019-03-16] MEDS: SODIUM CHLORIDE 0.9% 1000ML 1,000 ML IV SCH (06:09)
[2019-03-16 06:10] LABS: Albumin Globulin Ratio 0.9 (0.9-2); Bilirubin,Total 0.3 mg/dl (0.2-1); Globulin 3.2 gm/dl (2.5-4.0)
[2019-03-16] MEDS ORDERED: POTASSIUM CHLORIDE / WTR 10 MEQ/100 ML PLCT IV ONE (07:30)
[2019-03-16] MEDS: MAGNESIUM SULFATE / D5W 1 GM/100 ML BAG IV SCH ×2 (08:25→09:05)
[2019-03-16] MEDS: PRENATAL VITAMIN 1 TAB PO SCH (08:27)
--- NOTE | 2019-03-16 10:32 | Hospitalist Progress Note ---
Date of Service March 16, 2019 Assessment & Plan (1) Acute gallstone pancreatitis: -33-year-old female with no significant past medical history, she is 5 weeks , comes with back and abdominal pain. The patient reports since 34-week having back pain radiating to the middle of the abdomen on and off and is getting more severe last few weeks -admission lipase 5600 with transaminitis and upper level or normal levels of alkaline phosphatase -Gallbladder Ultrasound 03/14/19: Cholelithiasis and mild gallbladder wall thickening; No ductal dilatation -MRCP was performed 03/14/19 1. Cholelithiasis with mild gallbladder wall thickening/pericholecystic fluid 2. No evidence of biliary or pancreatic ductal dilatation. 3. No common bile duct calculi identified. -blood cultures were drawn on 03/14/19 and patient was empirically started on IV Zosyn empirically on 03/14/19 -patient received IV fluids, lipase normalized by AM of 03/15/19 and transaminitis improved - s/p Laparoscopic Cholecystectomy with Cholangiogram on 03/15/19 and as per surgery note there is post-op diagnosis of Cholelithiasis , gallstone pancreatitis -continue IV fluids and prn pain medications and prn antiemetics 03/16/19: patient seen earlier today by general surgery Dr. Raines who cleared patient for medical discharge as patient's pain after surgery was substantially improved. Patient was given IV magnesium and IV potassium based on AM labs by hospitalist medicine. When examined by hospitalist medicine doctor patient already dressed and getting ready to leave. Patient allowed for physical exam. Denies acute abdomen or back pain. no chest pain. breathing on room air. ambulating. no headache. no dizziness. we discussed her general surgery discharge instructions and also addressed follow up to family medical doctor Transaminitis Hypomagnesemia Hypokalemia -Patient should follow up with primary medical doctor in 1 week and follow up Complete blood count and comprehensive metabolic panel including serum magnesium. Liver enzymes of AST and ALT are normalizing after surgery. Patient discharge day labs of serum magnesium of 1.7 and serum potassium of potassium 3.4. Patient was given IV serum magnesium and IV potassium. status in recent weeks Deep venous thrombosis prophylaxis. ambulation as tolerated Full Code Discharge Diagnosis: gallstone pancreatitis; hypomagnesemia; hypokalemia; Transaminitis; status in recent weeks Subjective Patient seen earlier today by general surgery Dr. Raines who cleared patient for medical discharge as patient's pain after surgery was substantially improved. Patient was given IV magnesium and IV potassium based on AM labs by hospitalist medicine. When examined by hospitalist medicine doctor patient already dressed and getting ready to leave. Patient allowed for physical exam. Denies acute abdomen or back pain. no chest pain. breathing on room air. ambulating. no headache. no dizziness. we discussed her general surgery discharge instructions and also addressed follow up to family medical doctor Physical Exam Constitutional: comfortable Eyes: PERRL, conjunctivae normal, anicteric sclerae EOM intact bilaterally ENMT: external ear and nose normal, oropharynx normal Neck: normal visual inspection Respiratory: normal respiratory effort, lungs clear to auscultation Cardiovascular: RRR, no murmur, no edema Gastrointestinal (Abdomen): Percussion/Palpation: abdomen soft (nontender, bowel sounds present) Musculoskeletal: Head/Neck/Chest: normocephalic and head atraumatic Neurologic: PERRL, EOMI, accommodation nl, no face palsy, no dysarthria CN's II-XI intact bilaterally Psychiatric: A+Ox3, euthymic affect Results & Data Vital Signs (Past 12 Hours) Vital Signs Temp Pulse Pulse Resp BP BP Pulse Ox 03/16/19 07:25 36.5 C 84 20 102/68 97 03/16/19 07:10 37 C 73 16 104/65 106/60 98 03/16/19 03:52 37 C 73 16 104/65 98 03/15/19 23:22 36.8 C 76 14 106/60 97
--- NOTE | 2019-03-16 10:38 | Discharge Summary ---
Date of Service March 16, 2019 Admission HPI Per Admitting Provider 33-year-old female with a history of abdominal pain found to have evidence of acute pancreatitis. She recently delivered her first baby 6 weeks ago and developed sudden onset abdominal pain over 24 hours ago. She notes that she has had intermittent discomfort over the past few years. The pain was initially unremitting and now seems to be slowly improving. She was found to have elevation of her AST and ALT with evidence of lipase elevation as well. The patient denies having fevers, chills sweats or rigors. Patient's family history is notable for Crohn's disease in her father, no history of colon cancer, stomach cancer or esophageal cancer. Admission Exam Per Admitting Provider PHYSICAL EXAMINATION: GENERAL: The patient is of moderate build, not in acute distress. VITAL SIGNS: Temperature 36.6, pulse 76, respiratory rate 16, blood pressure 112/74, oxygen 98% room air. HEENT: No pallor, no icterus. Pupils equal, round, reactive to light. NECK: No JVD, no neck masses, no carotid bruit. CARDIOVASCULAR: S1, S2 heard. Regular rate and rhythm. No murmur, no gallop. RESPIRATORY SYSTEM: Normal AP diameter. No accessory muscle use. No wheezing, no crackles. ABDOMEN: Soft, bowel sounds present. Mild diffuse tenderness. No guarding or rigidity. CENTRAL NERVOUS SYSTEM: Cranial nerves II-XII grossly intact, nonfocal. EXTREMITIES: No edema, no erythema Principal Diagnosis gallstone pancreatitis; hypomagnesemia; hypokalemia; Transaminitis; status in recent weeks Discharge Exam Constitutional comfortable Eyes PERRL, conjunctivae normal, anicteric sclerae EOM intact bilaterally ENMT external ear and nose normal, oropharynx normal Neck normal visual inspection Respiratory normal respiratory effort, lungs clear to auscultation Cardiovascular RRR, no murmur, no edema Gastrointestinal (Abdomen) Percussion/Palpation: abdomen soft (nontender, bowel sounds present) Musculoskeletal Head/Neck/Chest: normocephalic and head atraumatic Neurologic PERRL, EOMI, accommodation nl, no face palsy, no dysarthria CN's II-XI intact bilaterally Psychiatric A+Ox3, euthymic affect Discharge Data Allergies Allergy/AdvReac Type Severity Reaction Status Date / Time No Known Allergies Allergy Verified 03/14/19 04:08 Consultations 03/14/19 06:20 ED Decision to Admit Stat 03/14/19 08:15 Consult Gastroenterology Routine Consult General Surgery Routine Procedures Performed Operation Date: 03/15/19 07:30 Actual Procedures p Laparoscopic Cholecystectomy with Cholangiogram(Not Applicable) - Camron Raines MD, FACS Ordered Studies 03/14/19 04:19 US gallbladder Urgent 03/14/19 08:21 MR MRCP Stat 03/15/19 07:00 [place] cholangiogram OR Routine Hospital Course (1) Acute gallstone pancreatitis: -33-year-old female with no significant past medical history, she is 5 weeks , comes with back and abdominal pain. The patient reports since 34-week having back pain radiating to the middle of the abdomen on and off and is getting more severe last few weeks -admission lipase 5600 with transaminitis and upper level or normal levels of alkaline phosphatase -Gallbladder Ultrasound 03/14/19: Cholelithiasis and mild gallbladder wall thicken ing; No ductal dilatation -MRCP was performed 03/14/19 1. Cholelithiasis with mild gallbladder wall thickening/pericholecystic fluid 2. No evidence of biliary or pancreatic ductal dilatation. 3. No common bile duct calculi identified. -blood cultures were drawn on 03/14/19 and patient was empirically started on IV Zosyn empirically on 03/14/19 -patient received IV fluids, lipase normalized by AM of 03/15/19 and transaminitis improved - s/p Laparoscopic Cholecystectomy with Cholangiogram on 03/15/19 and as per surgery note there is post-op diagnosis of Cholelithiasis , gallstone pancreatitis -continue IV fluids and prn pain medications and prn antiemetics 03/16/19: patient seen earlier today by general surgery Dr. Raines who cleared patient for medical discharge as patient's pain after surgery was substantially improved. Patient was given IV magnesium and IV potassium based on AM labs by hospitalist medicine. When examined by hospitalist medicine doctor patient already dressed and getting ready to leave. Patient allowed for physical exam. Denies acute abdomen or back pain. no chest pain. breathing on room air. ambulating. no headache. no dizziness. we discussed her general surgery discharge instructions and also addressed follow up to family medical doctor Transaminitis Hypomagnesemia Hypokalemia -Patient should follow up with primary medical doctor in 1 week and follow up Complete blood count and comprehensive metabolic panel including serum magnesium. Liver enzymes of AST and ALT are normalizing after surgery. Patient discharge day labs of serum magnesium of 1.7 and serum potassium of potassium 3.4. Patient was given IV serum magnesium and IV potassium. status in recent weeks Deep venous thrombosis prophylaxis. ambulation as tolerated Full Code Discharge Diagnosis: gallstone pancreatitis; hypomagnesemia; hypokalemia; Transaminitis; status in recent weeks Total Time Total Time Spent Total Time Spent (In Minutes): 20 minutes Total Time Includes: Examination of the Patient, Discharge Planning, Medication Reconciliation and Communication With Other Providers Discharge Plan Discharge Items Patient Disposition: Home - Self-Care Reason For Visit: BACK PAIN/ABD PAIN Discharge Diagnosis: gallstone pancreatitis; hypomagnesemia; hypokalemia; Transaminitis; status in recent weeks Condition: Good Discharge Goals: Decrease discomfort, Improve disease control and Improve function Activity: As commented below Activity Comment: light activity for 3 weeks Lifting: No more than 25 pounds Bathing Comment: may shower Sexual Activity: When tolerated Exercise/Sports: Wait until after follow-up appointment Driving/Machine Use: Resume 3 days after discharge Non-emergency contact: Primary Care Provider and Surgeon Call non-emergency contact if: your pain is not controlled, your temperature is above 101 and your wound has increased drainage Follow-up/Referrals: Nora Darling MD [Primary Care Provider] - Diet: Regular Addtl Provider Instructions: SPECIAL CARE INSTRUCTIONS: * Cover incisions and change daily for comfort/drainage. May leave uncovered if dry * May use ibuprofen for pain as tolerated. * Expect some swelling and bruising. Call your doctor if: * Temperature above 101 degrees * Pain not relieved by pain medicine ordered * There is increased drainage or redness from any incision * You have any unanswered questions or concerns [phone]. FOLLOW UP VISIT: If not already scheduled, please call the office for a follow-up visit. OFFICE PHONE NUMBER: Dr. Raines Office for end of this week- some suture removal/ check up Other Discharge instructions Patient should follow up with primary medical doctor in 1 week and follow up Complete blood count and comprehensive metabolic panel including serum magnesium. Liver enzymes of AST and ALT are normalizing after surgery. Patient discharge day labs of serum magnesium of 1.7 and serum potassium of potassium 3.4. Patient was given IV serum magnesium and IV potassium. Prescriptions: New hydrocodone-acetaminophen [[place]] 5-325 mg tablet 1 - 2 tab PO Q6H PRN (Reason: pain) Qty: 30 RF: 0 Continued cetirizine 10 mg tablet 10 mg PO DAILY PRN (Reason: Allergy Symptoms) RF: 0 mometasone 50 mcg/actuation spray,non-aerosol 1 spray intranasal DAILY PRN (Reason: Congestion) Qty: 1 RF: 0 norethindrone (contraceptive) [Ortho Micronor] 0.35 mg tablet 0.35 mg PO DAILY Qty: 28 RF: 11 PNV cmb#95-ferrous fumarate-FA [ Multivitamins] 28 mg iron- 800 mcg Tablet 1 tab PO DAILY RF: 0 Stand-Alone Forms: [facility] Discharge Orders: Discharge Order (Routine); Ordered 03/16/19 Ordered By: Camron Raiens Admission Data Admit Date/Time: 03/14/19 06:35 Attending Provider: Eder Crowell Admit Provider: Sebastian Murray Primary Care Provider: Nora Darling Other Providers: Sebastian Murray ; Malinda Mauricio Mark Service: Medical Other Interventions: Discharge Summary Assessment (RN) Last Done: 03/16/19 07:10
== END 2019-03-16 10:45 | disposition home or self-care (01) | DRG 769 ==
LOC: ED 03:29 → SUATTDRO 06:35 → 3N 06:35

== ENCOUNTER 2021-06-12 05:30 | Inpatient (IN) ==
--- NOTE | 2021-06-08 09:09 | Anesthesiology Consultation ---
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 Wears mask most of the time. No known Covid infection in the past 90 days. Patient is not vaccinated for Covid. No known Covid positive contacts or Covid related symptoms. Preop Covid testing scheduled 06/08/21= will await results. Pt wears mask "most of the time"/not vaccinated for Covid- will leave to anesthesiologist discretion day of procedure if rapid test needed. Patient seen by cardiology 03/07/2021 = patient seen for single umbilical artery and the fetus identified on anatomy scans. Plans to deliver at [facility]. has been uncomplicated with no bleeding, leakage of fluid, and early contractions, decreased movement or other related concerns. Patient had echo doneresults reviewed by cardio. Per cardiopatient has normal cardiovascular valuation, no evidence of major congenital heart disease, myocardial dysfunction, rhythm disturbances, pericardial effusion or other major concerns. 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 Pediatric cardiology team can be consulted anytime should there be concerns pre or postnatally about the or status. No indication for imaging of the at this time. ECHO 03/07/21= Normal LV/RV dimensions and systolic function. Normal LA/RA dimensions. Normal valve morphology and function. Normal cardiovascular shunts, HR, and rhythm. No vascular abnormalities. No pericardial effusions. Recommendations: No cardiology follow up recommended. No changes to /gestation plan. No post imaging of infant recommended. Laparoscopic cholecystectomy 03/15/2019 = done under [place] with grade 1 view with MAC #3. ETT #7.0. Scopolamine transdermal behind right ear. 02/04/19= Epidural dosed for procedure. done secondary to intolerance to labor. History Surgery Operation Date: 06/12/21 07:30 Proposed Procedures p Section in LD - J. Jose Saini MD, FACOG Height/Weight Height: 5 ft 6 in Weight: 78.471 kg Allergies Allergy/AdvReac Type Severity Reaction Status Date / Time No Known Allergies Allergy Verified 06/07/21 15:43 Medications Home Medications Medication Instructions Recorded Confirmed Last Taken prenat.vits,bobby,azi-[id number] 1 tab PO QAM 11/02/20 06/07/21 Unknown fexofenadine 60 mg tablet (Rocio 60 mg PO BID PRN 11/03/20 06/07/21 Unknown Allergy) ondansetron HCl 4 mg tablet 4 mg PO Q8H PRN #20 tab 12/20/20 06/07/21 Unknown (Zofran) breast pump #1 ea 02/14/21 05/30/21 Unknown breast pump #1 ea 02/14/21 05/30/21 Unknown ferrous sulfate 325 mg (65 mg 325 mg PO Q2D 06/07/21 06/07/21 Unknown iron) tablet omeprazole 10 mg capsule,delayed 10 mg PO BID 06/07/21 06/07/21 Unknown release Past Medical History Medical History Anemia Chronic and stable- since 2018- Hgb typically in 10-11 range History of cervical dysplasia History of COVID-24 october 2020. no current symptoms. mild flu like symptoms TMJ (temporomandibular joint syndrome) locked x1 at age 14. clicks now. Past Family History Family History Father Crohn's disease Hypertension Hypercholesteremia Deep vein thrombosis Prostate cancer Cancer Unknown Allergic rhinitis Grandmother Bone cancer Grandfather Stomach cancer Grandmother (Maternal) Diabetes Cancer Grandmother (Paternal) Cancer Other Kidney disease Lung disease Seizures Stroke Past Surgical History Surgical History H/O LEEP H/O wisdom tooth extraction History of section S/P laparoscopic cholecystectomy (03/15/19) Laparoscopic cholecystectomy with intraoperative cholangiogram 03/15/19 Dr. Raines Social History Smoking Status: Former smoker tobacco type: cigarettes Do You Dip or Chew Tobacco: No Smoking End Date: ~2006 Hx Alcohol Use: No Hx Substance Use: No
--- NOTE | 2021-06-08 12:05 | History & Physical Report ---
Date of Service June 08, 2021 Assessment & Plan (1) Supervision of normal intrauterine in multigravida: Plan: Repeat section. The patient was counseled to the nature of the procedure including alternatives such as labor. Risks were discussed including bleeding infection injury to bowel bladder ureter vessels and even baby. The risks of internal organ injury were discussed as being higher with prior sections. Deep Vein Thrombosis, pulmonary embolus and breakdown of the incision discussed. Deep vein thrombosis pulmonary embolus hernia and failure of the incision to heal were discussed Patient verbalized understanding of this and was given ample time to ask questions (2) History of : (3) Two vessel umbilical cord, antepartum, single gestation: History of Present Illness Primary Care Provider: Nora Darling MD Allergies Allergy/AdvReac Type Severity Reaction Status Date / Time No Known Allergies Allergy Verified 06/08/21 10:25 Home Medications Medication Instructions Recorded Confirmed Type prenat.vits,bobby,axk-[id number]-hjlfz 1 tab PO QAM 11/02/20 06/08/21 History fexofenadine 60 mg tablet (Rocio 60 mg PO BID PRN 11/03/20 06/08/21 History Allergy) ondansetron HCl 4 mg tablet 4 mg PO Q8H PRN #20 tab 12/20/20 06/08/21 Rx (Zofran) breast pump #1 ea 02/14/21 06/08/21 Rx breast pump #1 ea 02/14/21 06/08/21 Rx ferrous sulfate 325 mg (65 mg 325 mg PO Q2D 06/07/21 06/08/21 History iron) tablet omeprazole 10 mg capsule,delayed 10 mg PO BID 06/07/21 06/08/21 History release Patient History Medical History Anemia Chronic and stable- since 2019- Hgb typically in 10-11 range History of cervical dysplasia History of COVID-24 october 2020. no current symptoms. mild flu like symptoms TMJ (temporomandibular joint syndrome) locked x1 at age 14. clicks now. Surgical History H/O LEEP H/O wisdom tooth extraction History of section S/P laparoscopic cholecystectomy (03/15/19) Laparoscopic cholecystectomy with intraoperative cholangiogram 03/15/19 Dr. Raines Family History Father Crohn's disease Hypertension Hypercholesteremia Deep vein thrombosis Prostate cancer Cancer Unknown Allergic rhinitis Grandmother Bone cancer Grandfather Stomach cancer Grandmother (Maternal) Diabetes Cancer Grandmother (Paternal) Cancer Other Kidney disease Lung disease Seizures Stroke Social History (Updated 11/03/20 @ 13:48 by Zari Dela Cruz) Smoking Status: Former smoker Second Hand Exposure: No; Hx Alcohol Use: No Hx Substance Use: No Preferred Language: Ukrainian Communication Ability: Effective Crystal Lapper Required: No Beliefs That Will Affect Care: None marital status: marital status details: Britton (32) [phone] Current Living Situation: Spouse and Family Current Living Situation Comment: lives with spouse and son, 2 dogs. 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
[2021-06-12] MEDS ORDERED: LACTATED RINGER'S 1,000 ML IV SCH ×2 (05:45→09:52)
[2021-06-12] MEDS ORDERED: ceFAZolin 2000MG 2,000 MG/15 ML SYR IV SCH (06:00)
[2021-06-12] MEDS ORDERED: CITRIC ACID/SODIUM CITRATE 15 ML UDC PO SCH (06:00)
[2021-06-12] MEDS ORDERED: FLUARIX QUADRIVALENT 0.5 ML SYR IM ONE (06:05)
[2021-06-12 06:19] LABS: Basophils # (auto) 0.01 K/uL (0-0.2); Basophils % (auto) 0.1 %; Eosinophils # (auto) 0.04 K/uL (0-0.5); Eosinophils % (auto) 0.5 %; Hematocrit (blood only) 34.7 % (37-47); Hemoglobin 11.5 g/dL (12.0-16.0); Immature Granulocytes # (auto) 0.06 K/uL (0.00-0.02); Immature Granulocytes % (auto) 0.8 %; Lymphocytes % (auto) 27.7 %; Mean Corpuscular Hemoglobin 29.9 pg (25-34); Mean Corpuscular Hgb Conc 33.1 g/dL (32-36); Mean Corpuscular Volume 90.1 fL (80-100); Mean Platelet Volume 10.3 fL (7.4-10.4); Monocytes % (auto) 8.8 %; Neutrophils # (auto) 4.94 K/uL (1.4-6.5); Neutrophils % (auto) 62.1 %; Platelet Count 230 K/uL (130-400); RDW Coefficient of Variation 13.2 % (11.5-14.5); RDW Standard Deviation 43.2 fL (36.4-46.3); Red Blood Count 3.85 M/uL (4.2-5.4); White Blood Count 7.95 K/uL (4.8-10.8)
--- NOTE | 2021-06-12 06:55 | History & Physical Bridge Note ---
Date of Service June 12, 2021 History & Physical Bridge Note I have examined the patient, reviewed the History & Physical and in the interval since the performance of the History & Physical I have noted the following changes of clinical significance: no changes noted
[2021-06-12] MEDS ORDERED: MoRPHine SULFATE PF 1 MG/ML 10 ML AMP/VIAL ONE (07:08)
[2021-06-12] MEDS ORDERED: OXYTOCIN 10 UNITS/ML VIAL ONE (07:15)
[2021-06-12] MEDS ORDERED: ONDANSETRON INJ 2 MG/ML 2 ML VIAL ONE (07:15)
[2021-06-12] MEDS ORDERED: NALOXONE HCL 0.08 MG in SYRINGE 1.8 ML IV PRN (07:21)
[2021-06-12] MEDS ORDERED: ONDANSETRON INJ 2 MG/ML 2 ML VIAL IV PRN (07:21)
[2021-06-12] MEDS ORDERED: NALOXONE HCL 0.4 MG/1 ML VIAL/CARP IV PRN (07:21)
[2021-06-12] MEDS ORDERED: diphenhydrAMINE 50 MG/ML VIAL IV PRN (07:21)
[2021-06-12] MEDS ORDERED: ePHEDrine sulfate 50 MG/ML AMP IV PRN (07:21)
[2021-06-12] MEDS ORDERED: NALOXONE HCL 1 MG in SODIUM CHLORIDE 0.9% 1000ML 1,000 ML IV PRN (07:21)
[2021-06-12] MEDS ORDERED: KETOROLAC 30 MG/ML VIAL IV PRN (07:21)
[2021-06-12] MEDS ORDERED: MoRPHine SULFATE 2 MG/ML CARP IV PRN (07:21)
[2021-06-12] MEDS ORDERED: LACTATED RINGER'S 500 ML IV PRN (07:21)
[2021-06-12] MEDS ORDERED: MoRPHine SULFATE PF 1 MG/ML 10 ML AMP/VIAL INT SPINAL ONE (07:21)
[2021-06-12] MEDS ORDERED: PROMETHAZINE HCL 12.5 MG in SODIUM CHLORIDE 0.9% 50 ML IV PRN (07:21)
[2021-06-12] MEDS ORDERED: NALBUPHINE HCL INJ 10 MG/ML AMP IV PRN (07:21)
[2021-06-12] MEDS ORDERED: DC INTRASPINAL MORPHINE SCH (07:30)
[2021-06-12] MEDS ORDERED: NO NARCOTICS OR SEDATIVES SCH (07:30)
[2021-06-12] MEDS ORDERED: SODIUM CHLORIDE 0.9% 1000ML 1,000 ML IV SCH (07:30)
[2021-06-12] MEDS ORDERED: PHENYLEPHRINE 100MCG/ML 5ML SYR ONE (07:46)
[2021-06-12] MEDS ORDERED: ePHEDrine sulfate 50 MG/ML SYR ONE (07:46)
[2021-06-12] MEDS ORDERED: PROPOFOL IV EMULSION 10 MG/ML 20 ML VIAL IV ONE (07:56)
[2021-06-12] MEDS ORDERED: SUCCINYLCHOLINE CHLORIDE 20 MG/ML 10 ML VIAL IV ONE (07:56)
[2021-06-12] MEDS ORDERED: METOCLOPRAMIDE HCL INJ 5 MG/ML 2 ML VIAL ONE (08:19)
--- NOTE | 2021-06-12 08:35 | Operative Report ---
PG Post Operative Report Pre & Post Diagnosis Operation Date: 06/12/21 07:30 Pre-Op Diagnosis: Repeat section. Post-Op Diagnosis: Repeat section. I identified the patient and participated in the time-out.: Yes Procedure Operation Date: 06/12/21 07:30 Actual Procedures p Section (Delivery of Baby Through Abdominal Incision)(Not Applicable) - Tristan Saini MD, FACOG Surgeon Tristan Saini MD, FACOG Lab Support Service Tech Dr. Romo Estimated Blood Loss 500 Findings Consistent with Post-Op Diagnosis normal uterus, ovaries Specimens cord blood Description of Procedure Regional anesthetic was given by anesthesia patient had a Squires catheter inserted by nursing patient was prepped and draped in supine position with a leftward tilt preoperative antibiotics were given timeout performed Pickups with teeth were used to test the skin site and it was found adequate for incision scalpel used to make a Pfannenstiel incision cutting down through subcutaneous fat through the fascia fascia was then dissected laterally with the curved Rodarte's fascia was released superiorly and inferiorly from the rectus muscles with the curved Rodarte scissors, rectus muscle split peritoneal cavity entered in a superior location. Opening enlarged to allow exposure bladder retractor placed Metzenbaums used to dissect away the bladder flap low segment transverse incision made on the uterus with scalpel entry was done bluntly with the bookbinding machine operator's finger hysterotomy incision extended with the bookbinding machine operator's finger in the usual fashion attempted to deliver baby with flexion of the head and pressure from the assistant nurse manager however initially it would not fit so a vacuum was applied and pulled for briefly with no pop offs and then baby's head was then delivered with help from the assistant nurse manager pushing on the abdomen mouth and then nares were suctioned baby was then delivered fully without difficulty without excessive force live vigorous infant cord clamped and cut cord gases obtained cord blood obtained placenta removed manually within ensured all placenta removed with a moist lap sponge uterus exteriorized IV Pitocin had been started by anesthesia and uterine tone improved. The uterus was closed in 2 layers first layer and 0 Monocryl running locked second layer 0 Monocryl nonlocked after generous irrigation and suction of the cul-de-sac and bladder flap regions hemostasis was excellent uterus was placed back in the peritoneal cavity and hemostasis was excellent rectus muscles were inspected and found to be dry fascia closed with 0 Vicryl subcutaneous fat closed with 3-0 Vicryl prior to this subcutaneous fat was irrigated skin closed with 4-0 subcuticular Monocryl incision Steri-Stripped urine was clear at the end of the procedure I attest to the content of the Intraoperative Record and any orders documented therein. Any exceptions are noted below.
[2021-06-12] MEDS ORDERED: DIPHTHERIA/TETANUS/PERTUSSIS 0.5 ML SYR/VIAL IM ONE (09:52)
[2021-06-12] MEDS ORDERED: HYDROCORTISONE ACETATE 25 MG SUPP PR PRN (09:52)
[2021-06-12] MEDS ORDERED: NON-FORMULARY MEDICATION (Ferrous Sulfate 325 mg (65 mg iron) Tablet) PO SCH (09:52)
[2021-06-12] MEDS ORDERED: BENZOCAINE 20% AER SPR 82.5 GM CAN EXT PRN (09:52)
[2021-06-12] MEDS ORDERED: NON-FORMULARY MEDICATION (Breast Pump device) SCH (09:52)
[2021-06-12] MEDS ORDERED: NON-FORMULARY MEDICATION (Prenat.Vits,Cal,Min-Iron-Folic tablet) PO SCH (09:52)
[2021-06-12] MEDS ORDERED: SENNA 8.6 MG TAB PO PRN (09:52)
[2021-06-12] MEDS ORDERED: MAGNESIUM HYDROXIDE SUSP 30 ML UDC PO PRN (09:52)
[2021-06-12] MEDS ORDERED: SUPERCREAM 0.870% 15 GM JAR EXT PRN (09:52)
[2021-06-12] MEDS: OXYTOCIN 20 UNITS in LACTATED RINGER'S 1,000 ML IV SCH ×2 (11:02→19:43)
[2021-06-12] MEDS: PANTOprazole 40 MG TAB PO SCH ×2 (11:41→20:51)
[2021-06-12] MEDS ORDERED: hydrOXYzine HCl 25 MG TAB PO PRN (12:33)
[2021-06-12] MEDS: SIMETHICONE 80 MG CHEW PO SCH ×3 (13:00→20:51)
--- NOTE | 2021-06-12 14:38 | Anesthesiology Progress Note ---
Date of Service June 12, 2021 Anesthesia Post Procedure Vital Signs Vital Signs: Temp Pulse Pulse Resp BP BP Pulse Ox 06/12/21 12:30 36.4 C L 88 16 111/70 100 06/12/21 11:30 36.4 C L 100 H 18 121/72 100 06/12/21 10:53 90 129/80 06/12/21 10:48 111 H 99 06/12/21 10:43 87 97 06/12/21 10:40 20 06/12/21 10:38 83 98 06/12/21 10:34 93 H 121/72 06/12/21 10:33 93 H 99 06/12/21 10:28 87 98 06/12/21 10:23 84 100 06/12/21 10:18 97 H 100 06/12/21 10:13 101 H 122/70 99 06/12/21 10:10 20 06/12/21 10:09 82 92 06/12/21 10:08 82 92 06/12/21 10:03 77 121/70 100 06/12/21 09:58 80 100 06/12/21 09:54 75 121/58 L 06/12/21 09:53 75 100 06/12/21 09:48 80 100 06/12/21 09:43 87 112/62 100 06/12/21 09:40 36.3 C L 20 06/12/21 09:38 75 98 06/12/21 09:33 91 H 112/59 L 100 06/12/21 09:30 20 06/12/21 09:28 84 100 06/12/21 09:23 95 H 125/69 100 06/12/21 09:20 20 06/12/21 09:18 91 H 100 06/12/21 09:13 85 117/61 100 06/12/21 09:11 90 83 L 06/12/21 09:08 88 100 06/12/21 09:04 97 H 128/58 L 06/12/21 09:03 96 H 100 06/12/21 09:00 20 06/12/21 08:58 73 100 06/12/21 08:53 73 127/70 100 06/12/21 08:50 20 06/12/21 08:48 89 100 06/12/21 08:43 82 129/69 100 06/12/21 08:40 36.4 C L 20 06/12/21 05:47 36.7 C 18 06/12/21 05:38 83 115/75 Pain Intensity Abdomen: Pain Intensity: 1 Transfer of Care Handoff Completed per policy Notes Mental Status: alert / awake / arousable Patient Amnestic to Procedure: Yes Nausea / Vomiting: adequately controlled Pain: adequately controlled Airway Patency, RR, SpO2: stable & adequate BP & HR: stable & adequate Hydration State: stable & adequate Anesthetic Complications: no major complications apparent
[2021-06-12] MEDS: DOCUSATE SODIUM 100 MG CAP PO SCH (20:51)
[2021-06-13] MEDS ORDERED: diphenhydrAMINE 50 MG/ML VIAL IV PRN (01:53)
[2021-06-13] MEDS ORDERED: PROMETHAZINE HCL 25 MG in SODIUM CHLORIDE 0.9% 50 ML IV PRN (01:53)
[2021-06-13] MEDS ORDERED: ONDANSETRON INJ 2 MG/ML 2 ML VIAL IV PRN (01:53)
[2021-06-13] MEDS ORDERED: diphenhydrAMINE Capsule 25 MG CAP PO PRN (01:53)
[2021-06-13] MEDS ORDERED: oxyCODONE/ACETAMINOPHEN 5mg/325mg TAB PO ONE (05:46)
[2021-06-13] MEDS ORDERED: IBUPROFEN 600 MG TAB PO ONE (05:46)
--- NOTE | 2021-06-13 06:09 | Obstetrical Progress Note ---
Date of Service June 13, 2021 Assessment & Plan (1) Encounter for care and examination after delivery: Plan: 36yo POD 1 s/p LTCS at 39 weeks -Continue routine care -Vitals reviewed- HDS, afebrile -Blood type A positive -Encourage ambulation, regular diet -Pain control with ibuprofen, acetaminophen PRN -Encourage -Hgb 9.9 -F/u in 6 weeks with OB Admission and Anticipated Discharge Date Admission Date: June 12, 2021 Supervising Physician Co-Signing Physician Notes Resident Physician Supervision Note: I interviewed and examined the patient. Discussed with Dr. Eric and agree with findings and plan as documented in the note. Any exceptions or clarifications are listed here: POD1 s/p rLTCS, doing well and meeting all milestones. VSS, exam benign and wnl, incision c/d/i. Continue routine pp care Documented By: Patricia Romo MD Subjective Ambulation: yes Voiding: yes, wasserman removed Passing Gas: Yes BM: not yet Diet Tolerance: regular diet Lochia: Small Feeding Type: breast feeding Current Pain Level(1-10): 4 after pain medications Review of Systems Review of Systems: Denies fevers/chills. Denies dyspnea, cough. Denies chest pain. Denies breast pain or discharge. Denies dysuria. Mild headache overnight Denies back pain. Mild nausea yesterday Physical Exam Physical Exam: General: Alert, oriented, no acute distress Cardiac: Regular rate and rhythm, normal S1, S2. No murmurs appreciated. Respiratory: Clear to auscultation b/l with good air flow entry, symmetric chest rise and fall. No wheezes or crackles. No increased work of breathing or accessory muscle use Abdomen: Soft, nondistended. Fundus firm and palpable at umbilicus. No guarding or rebound. Skin: Incision site healing well with no signs of infection Extremities: Warm, dry, well-perfused with capillary refill <2s b/l. No lower extremity edema, erythema or swelling. Negative Kerri's sign b/l. Results & Data ([facility]) Vital Signs (Past 12 Hours) Vital Signs Temp Pulse Resp BP Pulse Ox 06/13/21 04:10 36.8 C 88 16 114/71 100 06/13/21 02:20 16 99 06/13/21 00:40 16 100 06/13/21 00:00 37.1 C 87 16 108/72 100 06/12/21 22:50 14 98 06/12/21 21:23 16 99 06/12/21 20:54 16 100 06/12/21 20:40 16 100 06/12/21 19:44 16 100 06/12/21 19:10 37 C 90 16 108/70 100 06/12/21 18:37 18 100 Resident Activity Tracking Resident Involvement: Resident Care Provided Care Provided: OB Delivery
[2021-06-13 07:19] LABS: Eosinophils # (auto) 0.04 K/uL (0-0.5); Eosinophils % (auto) 0.5 %; Hematocrit (blood only) 30.3 % (37-47); Hemoglobin 9.9 g/dL (12.0-16.0); Immature Granulocytes # (auto) 0.02 K/uL (0.00-0.02); Immature Granulocytes % (auto) 0.3 %; Lymphocytes # (auto) 1.13 K/uL (1.2-3.4); Lymphocytes % (auto) 14.8 %; Mean Corpuscular Hemoglobin 29.8 pg (25-34); Mean Corpuscular Hgb Conc 32.7 g/dL (32-36); Mean Corpuscular Volume 91.3 fL (80-100); Mean Platelet Volume 10.1 fL (7.4-10.4); Monocytes # (auto) 0.67 K/uL (0.11-0.59); Monocytes % (auto) 8.7 %; Neutrophils % (auto) 75.7 %; Platelet Count 191 K/uL (130-400); RDW Coefficient of Variation 13.4 % (11.5-14.5); RDW Standard Deviation 44.7 fL (36.4-46.3); Red Blood Count 3.32 M/uL (4.2-5.4); White Blood Count 7.66 K/uL (4.8-10.8)
[2021-06-13] MEDS: FERROUS SULFATE 325 MG TAB PO SCH (08:12)
[2021-06-13] MEDS: SIMETHICONE 80 MG CHEW PO SCH ×4 (08:12→20:16)
[2021-06-13] MEDS: DOCUSATE SODIUM 100 MG CAP PO SCH ×2 (08:12→20:16)
[2021-06-13] MEDS: PRENATAL VITAMIN 1 TAB PO SCH (08:12)
[2021-06-13] MEDS: IBUPROFEN 600 MG TAB PO PRN ×4 (08:52→21:20)
[2021-06-13] MEDS: oxyCODONE/ACETAMINOPHEN 5mg/325mg TAB PO PRN ×4 (08:53→21:20)
[2021-06-13] MEDS: PANTOprazole 40 MG TAB PO SCH ×2 (09:49→21:34)
[2021-06-13] MEDS ORDERED: bisacodyL 5 MG TABEC PO SCH (20:00)
[2021-06-14] MEDS: oxyCODONE/ACETAMINOPHEN 5mg/325mg TAB PO PRN ×3 (02:03→10:52)
[2021-06-14] MEDS: IBUPROFEN 600 MG TAB PO PRN ×3 (02:04→10:52)
[2021-06-14 06:45] LABS: Hematocrit (blood only) 31.5 % (37-47); Hemoglobin 10.3 g/dL (12.0-16.0)
--- NOTE | 2021-06-14 07:03 | Obstetrical Progress Note ---
Date of Service June 14, 2021 Assessment & Plan (1) delivery delivered: Doing well. Plan d/c. Instructions given. Rh neg. f/u 6 weeks. Day #:: 2 Subjective Ambulation: ambulating normally Voiding: no voiding problems Passing Gas:: Yes Diet Tolerance:: regular diet Lochia:: Small Feeding Type:: breast feeding Physical Exam Constitutional WD/WN, vitals as above Cardiovascular Extremities: no calf tenderness and no edema Gastrointestinal (Abdomen) soft, nt, nd ff/nt at u incision c/d/i Results & Data ([facility]) Vital Signs (Past 12 Hours) Vital Signs Temp Pulse Resp BP Pulse Ox 06/14/21 00:00 36.7 C 83 16 107/70 99 06/13/21 19:45 36.7 C 91 H 17 106/71 98
[2021-06-14] MEDS: DOCUSATE SODIUM 100 MG CAP PO SCH (07:33)
[2021-06-14] MEDS: FERROUS SULFATE 325 MG TAB PO SCH (07:33)
[2021-06-14] MEDS: PRENATAL VITAMIN 1 TAB PO SCH (07:33)
[2021-06-14] MEDS ORDERED: bisacodyL 10 MG SUPP PR PRN (08:42)
--- NOTE | 2021-06-15 12:53 | Discharge Summary ---
Date of Service June 15, 2021 Admission Exam (Per Admitting) Constitutional WD/WN, vitals as above well developed and well nourished Respiratory normal respiratory effort, lungs clear to auscultation normal respiratory effort Cardiovascular RRR, no murmur, no edema Gastrointestinal (Abdomen) normal bowel sounds, soft, nontender, no hepatosplenomegaly Discharge Data Consultations 06/12/21 05:39 Consult Anesthesiology Stat Procedures Performed Operation Date: 06/12/21 07:30 Actual Procedures p Section (Delivery of Baby Through Abdominal Incision) Live male child deivered at 0803 in OR #3(Not Applicable) - Tristan Saini MD, [facility] Course (1) delivery delivered: Doing well. Plan d/c. Instructions given. Rh neg. f/u 6 weeks. Coding Level of Care Code None Diagnoses delivery delivered O82
== END 2021-06-14 12:30 | disposition home or self-care (01) | DRG 788 ==
LOC: 4S1 05:30 → EDSTATUS 07:30 → 4S2 12:27